=== PATIENT | male | born 1965 | race Caucasian/White ===

== ENCOUNTER → 2016-09-02 | Outpatient (CLI) | payer BC ==
[2016-09-02 16:42] LABS: BASO % 1.5 %; BASO ABS # 0.06 K/uL (0-0.2); COMPLETE YES; HEMATOCRIT 39.8 % (42-52); IG% 0.2 %; LYMPH % 37.1 %; LYMPH ABS # 1.49 K/uL (1.2-3.4); MEAN CELL VOLUME 95.7 fL (80-100); MEAN CORPUSCULAR HEMOGLOBIN 33.4 pg (25-34); MEAN CORPUSCULAR HGB CONC 34.9 g/dl (32-36); MEAN PLATELET VOLUME 9.7 fL (7.4-10.4); NEUT % 52.2 %; PLATELET COUNT 171 K/uL (130-400); RED BLOOD COUNT 4.16 M/uL (4.7-6.1); WHITE BLOOD COUNT 4.02 K/uL (4.8-10.8)
[2016-09-02 16:53] LABS: ALT/SGPT 28 U/L (12-78); AST/SGOT 21 U/L (15-37); BLOOD UREA NITROGEN 20 mg/dl (7-18); CALCIUM 8.6 mg/dl (8.5-10.1); CARBON DIOXIDE 31 mmol/L (21-32); CHLORIDE 106 mmol/L (98-107); CREATININE 0.89 mg/dl (0.60-1.40); GLUCOSE 84 mg/dl (70-99); SODIUM 142 mmol/L (136-145)
[2016-09-02 16:58] LABS: ALB/GLOB RATIO 1.3 (0.9-2); ALKALINE PHOSPHATASE 54 U/L (45-117); CHOLESTEROL 123 mg/dl (0-200); CHOLESTEROL/HDL RATIO 1.8; HDL CHOLESTEROL 69 mg/dl; LDL CHOLESTEROL CALCULATED 44 mg/dl; PROSTATE SPECIFIC ANTIGEN 0.855 ng/ml (0.000-4.000); TRIGLYCERIDES 52 mg/dl (0-150); VERY LOW DENSITY LIPOPROT CALC 10 mg/dl
== END | disposition home or self-care (01) ==
LOC: C.LAB1850 15:20
PROVIDERS: ATTEND Internal Medicine
DX: D72.819 Decreased white blood cell count, unspecified (principal); Z12.5 Encounter for screening for malignant neoplasm of prostate; Z13.220 Encounter for screening for lipoid disorders; Z11.59 Encounter for screening for other viral diseases

== ENCOUNTER 2017-05-19 00:17 | Inpatient (IN) | payer BC ==
[~2017-05-19] VITALS: Ht 180.3 cm; Wt 64.1 kg
[2017-05-19] MEDS ORDERED: ONDANSETRON INJ 2 MG/ML 2 ML VIAL ONE (00:43)
[2017-05-19] MEDS ORDERED: FENTANYL CITRATE INJ 50 MCG/1 ML 2 ML VIAL ONE (00:43)
[2017-05-19 00:50] LABS: ISTAT CREATININE 0.9 mg/dl (0.6-1.3); ISTAT HEMOGLOBIN 14.6 g/dl (14.0-18.0); ISTAT IONIZED CALCIUM 1.2 mmol/l (1.12-1.32)
--- NOTE | 2017-05-19 00:54 | EMERGENCY ROOM VISIT NOTE ---
History Report prepared by Doc: Aaron Sherman Under the Supervision of: Dr. Prema Selby D.O. First contact with patient: 00:34 Chief Complaint: ABDOMINAL PAIN Stated Complaint: ABD PAIN History of Present Illness The patient is a 51 year old male who presents to the Emergency Room with complaints of severe, constant, abdominal pain beginning 4.5 hours ago. He currently rates his discomfort a 7/10 in severity. The patient states his pain is less rhythmic than while he was at home. He notes he became dizzy, lightheaded, and nauseous. He reports he vomited multiple times and he cannot stop shaking. The patient states he has been fine all day. He reports he has a history of a laparotomy 3 years ago for a small bowel obstruction, an appendectomy, and a neurogenic bladder. The patient notes he uses a straight catheter three times a day, and he last cathed himself 4.5 hours ago. Source of History: patient Onset: 4.5 hours ago Position: abdomen Symptom Intensity: 7/10 Timing: constant Associated Symptoms: + nausea, + vomiting Note: Associated symptoms: lightheaded, dizzy Review of Systems See HPI for pertinent positives & negatives. A total of 10 systems reviewed and were otherwise negative. Past Medical & Surgical Medical Problems: (1) Bronchitis (2) Neurogenic bladder disorder (3) SBO (small bowel obstruction) Surgical Problems: (1) Hx of appendectomy Family History Diabetes mellitus GRANDFATHER FH: cancer GRANDMOTHER Social History Smoking Status: Never Smoker Alcohol Use: occasionally Marital Status: Housing Status: lives with significant other Occupation Status: employed Current/Historical Medications No Active Prescriptions or Reported Meds Allergies Coded Allergies: Penicillins (Verified Allergy, Unknown, unknown, 05/19/17) Physical Exam Vital Signs Date Time Temp Pulse Resp B/P (MAP) Pulse Ox O2 Delivery O2 Flow Rate FiO2 05/19/17 01:38 51 15 104/68 99 Room Air 05/19/17 00:38 60 05/19/17 00:19 61 24 130/81 100 Room Air Physical Exam HEENT: Head - normocephalic and atraumatic Pupils are equal, round, and reactive to light. Extraocular eye muscles are intact, and sclera are anicteric. Nose - moist nasal mucosa without discharge. Mouth - moist buccal mucosa. Oropharynx is nonerythematous and there is no tonsillar exudate or edema noted. Neck: Supple; no JVD, nuchal rigidity, cervical lymphadenopathy, or auscultated bruits. Heart: Bradycardic rate and regular rhythm. There is a normal S1 and S2 with no murmurs, clicks, or gallops appreciated. Lungs: Clear to auscultation bilaterally with no wheezes, rales, or rhonchi. Abdomen: Soft, diffusely tender, distended, with hypoactive bowel sounds. There are no palpable pulsatile masses or hepatosplenomegaly. There is no guarding, rigidity, or rebound noted. Extremities: No evidence of cyanosis, clubbing, or edema. There are easily palpable peripheral pulses. Skin: Pale, warm and dry with good turgor and no rashes. Medical Decision & Procedures ER Provider Diagnostic Interpretation: Radiology results as stated below per my review and the radiologist's interpretation: Chest x-ray: no free air under the diaphragm, otherwise normal Obstruction series x-rays: no obvious obstruction, moderate amount of colonic stool, small air fluid level in LUQ. CT ABDOMEN & PELVIS WITH CONTRAST: Comparison: CT dated 03/08/2014. Distended fluid-filled small bowel loops suggestive of small bowel obstruction with possible transition point in the right posterior pelvis (image [id number]). Differential considerations also include enteritis or ileus. Possible trace free fluid. No evidence of free air. Large amount of stool in the right colon. Radiologist: Essence Major MD Study ready at 0236 and initial results transmitted at 0331. Laboratory Results 05/19/17 00:34 Red Blood Count 4.53, Mean Corpuscular Volume 97.1, Mean Corpuscular Hemoglobin 33.1, Mean Corpuscular Hemoglobin Concent 34.1, Mean Platelet Volume 9.5, Neutrophils (%) (Auto) 68.8, Lymphocytes (%) (Auto) 22.9, Monocytes (%) (Auto) 4.9, Eosinophils (%) (Auto) 2.5, Basophils (%) (Auto) 0.7, Neutrophils # (Auto) 5.74, Lymphocytes # (Auto) 1.91, Monocytes # (Auto) 0.41, Eosinophils # (Auto) 0.21, Basophils # (Auto) 0.06 05/19/17 00:34 Test 05/19/17 00:34 05/19/17 00:39 05/19/17 00:43 05/19/17 02:15 White Blood Count 8.35 K/uL (4.8-10.8) Red Blood Count 4.53 M/uL (4.7-6.1) Hemoglobin 15.0 g/dL (14.0-18.0) Hematocrit 44.0 % (42-52) Mean Corpuscular Volume 97.1 fL (80-100) Mean Corpuscular Hemoglobin 33.1 pg (25-34) Mean Corpuscular Hemoglobin Concent 34.1 g/dl (32-36) Platelet Count 187 K/uL (130-400) Mean Platelet Volume 9.5 fL (7.4-10.4) Neutrophils (%) (Auto) 68.8 % Lymphocytes (%) (Auto) 22.9 % Monocytes (%) (Auto) 4.9 % Eosinophils (%) (Auto) 2.5 % Basophils (%) (Auto) 0.7 % Neutrophils # (Auto) 5.74 K/uL (1.4-6.5) Lymphocytes # (Auto) 1.91 K/uL (1.2-3.4) Monocytes # (Auto) 0.41 K/uL (0.11-0.59) Eosinophils # (Auto) 0.21 K/uL (0-0.5) Basophils # (Auto) 0.06 K/uL (0-0.2) RDW Standard Deviation 44.3 fL (36.4-46.3) RDW Coefficient of Variation 12.6 % (11.5-14.5) Immature Granulocyte % (Auto) 0.2 % Immature Granulocyte # (Auto) 0.02 K/uL (0.00-0.02) Est Creatinine Clear Calc Drug Dose 85.2 ml/min Estimated GFR () 110.4 Estimated GFR (Non- 95.3 BUN/Creatinine Ratio 17.7 (10-20) Calcium Level 8.7 mg/dl (8.5-10.1) Total Bilirubin 0.7 mg/dl (0.2-1) Direct Bilirubin 0.2 mg/dl (0-0.2) Aspartate Amino Transf (AST/SGOT) 18 U/L (15-37) Alanine Aminotransferase (ALT/SGPT) 27 U/L (12-78) Alkaline Phosphatase 53 U/L (45-117) Total Protein 7.4 gm/dl (6.4-8.2) Albumin 4.0 gm/dl (3.4-5.0) Lipase 137 U/L (73-393) Bedside Hemoglobin 14.6 g/dl (14.0-18.0) Bedside Hematocrit 43 % (42-52) Bedside Sodium 142 mEq/L (135-144) Bedside Potassium 3.5 mEq/L (3.3-5.0) Bedside Chloride 100 mEq/L (101-112) Bedside Total CO2 29 mEq/l (24-31) Anion Gap 17.0 mmol/L (16-25) Bedside Blood Urea Nitrogen 17 mg/dl (7-18) Bedside Creatinine 0.9 mg/dl (0.6-1.3) Bedside Glucose (other) 133 mg/dl (70-99) Bedside Ionized Calcium (Carlos) 1.20 mmol/l (1.12-1.32) Bedside Lactic Acid Venous 1.27 mmol/L (0.90-1.70) Urine Color YELLOW Urine Appearance CLEAR (CLEAR) Urine pH 6.5 (4.5-7.5) Urine Specific [place] 1.021 (1.000-1.030) Urine Protein NEG (NEG) Urine Glucose (UA) NEG (NEG) Urine Ketones TRACE (NEG) Urine Occult Blood NEG (NEG) Urine Nitrite POS (NEG) Urine Bilirubin NEG (NEG) Urine Urobilinogen NEG (NEG) Urine Leukocyte Esterase TRACE (NEG) Urine WBC (Auto) >30 /hpf (0-5) Urine RBC (Auto) 0-4 /hpf (0-4) Urine Hyaline Casts (Auto) 1-5 /lpf (0-5) Urine Epithelial Cells (Auto) 0-5 /lpf (0-5) Urine Bacteria (Auto) NEG (NEG) Urine Mucus PRESENT (NONE PRSENT) Laboratory results per my review. Medications Administered Medications (Trade) Dose Ordered Sig/Ana Route Start Time Stop Time Status Last Admin Dose Admin Fentanyl Citrate (Fentanyl Inj) 100 mcg STK-MED ONCE .ROUTE 05/19/17 00:43 05/19/17 00:44 DC 05/19/17 00:52 50 MCG Ondansetron HCl (Zofran Inj) 4 mg STK-MED ONCE .ROUTE 05/19/17 00:43 05/19/17 00:44 DC 05/19/17 00:53 4 MG Hydromorphone HCl (Dilaudid Inj) 0.5 mg NOW STAT IV 05/19/17 01:26 05/19/17 01:28 DC 05/19/17 01:34 0.5 MG Sodium Chloride 500 ml @ 999 mls/hr Q31M STAT IV 05/19/17 01:33 05/19/17 02:03 DC 05/19/17 01:35 999 MLS/HR Sodium Chloride 1,000 ml @ 200 mls/hr Q5H STAT IV 05/19/17 04:04 05/19/17 05:17 DC 05/19/17 04:06 200 MLS/HR Procedure 0043: Ordered Ondansetron HCl 4mg IV, Fentanyl Citrate 100 mcg IV 0126: Ordered Hydromorphone HCl 0.5mg IV 0133: Ordered Sodium Chloride 500 ml @ 999 mls/hr IV. 0404: Ordered Sodium Chloride 1000 ml @ 200 mls/hr IV. ECG Indication: abdominal pain Rate (beats per minute): 49 Rhythm: sinus bradycardia Findings: no acute ischemic change, no ectopy ED Course 0037: The patient was evaluated in room A01. A complete history and physical examination were performed. Nursing notes and previous electronic medical records were reviewed. IV lock was established and labs were drawn as above. 0040: The patient was moved to A12B. 0043: Ordered Ondansetron HCl 4mg IV, Fentanyl Citrate 50 mcg IV 0125: I reevaluated the patient and updated him of his current exam findings. He is still in pain. His objected to the rest of the x-rays because he had another emesis and his pain increased. 0126: Ordered Hydromorphone HCl 0.5mg IV. The patient will go back to radiology for the rest of his x-rays 0133: Ordered Sodium Chloride 500 ml @ 999 mls/hr IV. 0208: After the remaining x-rays were obtained, I reviewed the patient's x- rays. He is going for CT. 0209: I reevaluated the patient and discussed his x-ray results with him and his . The patient agreed to a CT scan. 0345: At this time, the patient is symptom-free. I discussed the patient's case with Dr. Marin [facility] Hospitalist. The patient will be evaluated for further management and care. 0347: Upon reevaluation, I discussed findings and results with the patient and his . He is very comfortable and is completely pain free. I performed another PE, and the patient's abdomen was soft, nondistended, nontender, and he had good bowel sounds. He verbalized agreement of the treatment plan. 0404: Ordered Sodium Chloride 1000 ml @ 200 mls/hr IV. Medical Decision The patient is a 51 year old male who presents to the ED with abdominal pain. Differential diagnosis includes small bowel obstruction, perforated viscus, gastritis, colitis, diverticulitis, sepsis, cystitis iSTAT showed: glucose of 133, stable H&H, normal renal function Lab results showed: lactic acid of 1.27, LFTs and lipase are normal This is a 51-year-old male patient who presents to the emergency department with a sudden onset of severe arrhythmic pain in the abdomen. The patient had intussusception at 6 months of age with surgery and went on to have a significant bowel obstruction 3 years ago which resulted in surgery and a one- month hospitalization. The patient has done well since that time but developed severe pain tonight. CT scan was concerning for a small bowel obstruction. However, the patient's physical exam seemed to dramatically improve after some time here in the emergency department. I've suggested that the patient remain nothing by mouth and come into the hospital for further inpatient care and observation. Consults Time Called: [phone] Consulting Physician: Dr. Marin [facility] Hospitalist Returned Call: [phone] I discussed the patient's case with Dr. Marin [facility] Hospitalist. The patient will be evaluated for further management and care. Impression Primary Impression: SBO (small bowel obstruction) Scribe Attestation The scribe's documentation has been prepared under my direction and personally reviewed by me in its entirety. I confirm that the note above accurately reflects all work, treatment, procedures, and medical decision making performed by me. Departure Information Dispostion Being Evaluated By Hospitalist Prescriptions No Active Prescriptions or Reported Meds Referrals Gwyn Egan M.D. (PCP) Patient Instructions My [facility]
[2017-05-19 01:01] LABS: BASO % 0.7 %; BASO ABS # 0.06 K/uL (0-0.2); COMPLETE YES; EOS % 2.5 %; IG% 0.2 %; LYMPH % 22.9 %; LYMPH ABS # 1.91 K/uL (1.2-3.4); MEAN CELL VOLUME 97.1 fL (80-100); MEAN CORPUSCULAR HEMOGLOBIN 33.1 pg (25-34); MEAN CORPUSCULAR HGB CONC 34.1 g/dl (32-36); MEAN PLATELET VOLUME 9.5 fL (7.4-10.4); MONO % 4.9 %; NEUT % 68.8 %; PLATELET COUNT 187 K/uL (130-400); RED BLOOD COUNT 4.53 M/uL (4.7-6.1); WHITE BLOOD COUNT 8.35 K/uL (4.8-10.8)
[2017-05-19 01:10] LABS: BUN/CREATININE RATIO 17.7 (10-20); CALCIUM 8.7 mg/dl (8.5-10.1); CREATININE 0.92 mg/dl (0.60-1.40); POTASSIUM 3.7 mmol/L (3.5-5.1)
[2017-05-19] MEDS ORDERED: HYDROmorphone INJ 0.5 MG/0.5 ML SYR IV STA (01:26)
[2017-05-19] MEDS ORDERED: SODIUM CHLORIDE 0.9% 500ML 500 ML IV STA (01:33)
[2017-05-19] MEDS ORDERED: OPTIRAY 320 IV PRN (02:15)
[2017-05-19 02:47] LABS: URINE APPEARANCE CLEAR (CLEAR); URINE BILIRUBIN NEG (NEG); URINE COLOR YELLOW; URINE EPITHELIAL CELL AUTO 0-5 /lpf (0-5); URINE NITRITE POS (NEG); URINE PH 6.5 (4.5-7.5); URINE SPECIFIC GRAVITY 1.021 (1.000-1.030); UROBILINOGEN NEG (NEG)
[2017-05-19 02:52] LABS: MANUAL MICROSCOPIC REQUIRED? NO; REVIEW REQ? YES
[2017-05-19 03:05] LABS: URINE MUCUS PRESENT (NONE PRSENT)
[2017-05-19] MEDS ORDERED: SODIUM CHLORIDE 0.9% 1000ML 1,000 ML IV STA (04:04)
[2017-05-19] MEDS ORDERED: HYDROmorphone INJ 0.5 MG/0.5 ML SYR IV PRN (04:15)
[2017-05-19] MEDS ORDERED: ONDANSETRON INJ 2 MG/ML 2 ML VIAL IV PRN (04:15)
--- NOTE | 2017-05-19 04:27 | History and Physical ---
History & Physical Date & Time of Service: May 19, 2017 at 04:13 Chief Complaint: Abd Pain Primary Care Physician: Gwyn Egan M.D. History of Present Illness Source: patient 51 y/o M Hx neurogenic bladder, SBO requiring surgical intervention 02/10. Presents with acute onset abdominal pain, nausea, vomiting. He received narcotics in the ER and following a third dose had complete resolution of his symptoms. results of a CT abdomen were consistent with a SBO. 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 [employer] Smoking Status: Never Smoker Marital Status: Occupational Status: employed Multi-Drug Resistant Organisms History of MDRO: No Allergies Coded Allergies: Penicillins (Verified Allergy, Unknown, unknown, 05/19/17) Home Medications No Active Prescriptions or Reported Meds Review of Systems Constitutional: No fever, No chills, No sweats Eyes: No worsening of vision ENT: No hearing loss, No unusual epistaxis, No nasal symptoms Respiratory: No cough, No wheezing Cardiovascular: No chest pain, No orthopnea, No PND Abdomen: + pain, + nausea, + vomiting Musculoskeletal: No joint pain Genitourinary - Male: No hematuria, No dysuria Neurologic: No memory loss, No paralysis, No weakness Psychiatric: No depression symptoms Endocrine: No fatigue Hematologic / Lymphatic: No abnormal bleeding/bruising Integumentary: No rash Allergic / Immunologic: No environmental allergies Physical Exam Vital Signs Date Time Temp Pulse Resp B/P (MAP) Pulse Ox O2 Delivery O2 Flow Rate FiO2 05/19/17 01:38 51 15 104/68 99 Room Air 05/19/17 00:38 60 05/19/17 00:19 61 24 130/81 100 Room Air General Appearance: WD/WN, no apparent distress Head: normocephalic Eyes: normal inspection ENT: normal ENT inspection, pharynx normal Neck: supple, no JVD Respiratory/Chest: chest non-tender, lungs clear, normal breath sounds Cardiovascular: regular rate, rhythm, no edema, no gallop Abdomen/GI: + pertinent finding (Minimal bowel sounds - no tenderness to palpation - no distention) Back: normal inspection, no CVA tenderness Extremities/Musculoskelatal: normal inspection, no calf tenderness, normal capillary refill 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, no motor/sensory deficits, alert Skin: normal color, warm/dry Diagnostics Laboratory Results Results Past 24 Hours Test 05/19/17 00:34 05/19/17 00:39 05/19/17 00:43 05/19/17 02:15 Range/Units White Blood Count 8.35 4.8-10.8 K/uL Red Blood Count 4.53 4.7-6.1 M/uL Hemoglobin 15.0 14.0-18.0 g/dL Hematocrit 44.0 42-52 % Mean Corpuscular Volume 97.1 80-100 fL Mean Corpuscular Hemoglobin 33.1 25-34 pg Mean Corpuscular Hemoglobin Concent 34.1 32-36 g/dl Platelet Count 187 130-400 K/uL Mean Platelet Volume 9.5 7.4-10.4 fL Neutrophils (%) (Auto) 68.8 % Lymphocytes (%) (Auto) 22.9 % Monocytes (%) (Auto) 4.9 % Eosinophils (%) (Auto) 2.5 % Basophils (%) (Auto) 0.7 % Neutrophils # (Auto) 5.74 1.4-6.5 K/uL Lymphocytes # (Auto) 1.91 1.2-3.4 K/uL Monocytes # (Auto) 0.41 0.11-0.59 K/uL Eosinophils # (Auto) 0.21 0-0.5 K/uL Basophils # (Auto) 0.06 0-0.2 K/uL RDW Standard Deviation 44.3 36.4-46.3 fL RDW Coefficient of Variation 12.6 11.5-14.5 % Immature Granulocyte % (Auto) 0.2 % Immature Granulocyte # (Auto) 0.02 0.00-0.02 K/uL Sodium Level 138 136-145 mmol/L Potassium Level 3.7 3.5-5.1 mmol/L Chloride Level 104 98-107 mmol/L Carbon Dioxide Level 30 21-32 mmol/L Anion Gap 4.0 17.0 16-25 mmol/L Blood Urea Nitrogen 16 7-18 mg/dl Creatinine 0.92 0.60-1.40 mg/dl Est Creatinine Clear Calc Drug Dose 85.2 ml/min Estimated GFR () 110.4 Estimated GFR (Non- 95.3 BUN/Creatinine Ratio 17.7 10-20 Random Glucose 131 70-99 mg/dl Calcium Level 8.7 8.5-10.1 mg/dl Total Bilirubin 0.7 0.2-1 mg/dl Direct Bilirubin 0.2 0-0.2 mg/dl Aspartate Amino Transf (AST/SGOT) 18 15-37 U/L Alanine Aminotransferase (ALT/SGPT) 27 12-78 U/L Alkaline Phosphatase 53 45-117 U/L Total Protein 7.4 6.4-8.2 gm/dl Albumin 4.0 3.4-5.0 gm/dl Lipase 137 73-393 U/L Bedside Hemoglobin 14.6 14.0-18.0 g/dl Bedside Hematocrit 43 42-52 % Bedside Sodium 142 135-144 mEq/L Bedside Potassium 3.5 3.3-5.0 mEq/L Bedside Chloride 100 101-112 mEq/L Bedside Total CO2 29 24-31 mEq/l Bedside Blood Urea Nitrogen 17 7-18 mg/dl Bedside Creatinine 0.9 0.6-1.3 mg/dl Bedside Glucose (other) 133 70-99 mg/dl Bedside Ionized Calcium (Carlos) 1.20 1.12-1.32 mmol/l Bedside Lactic Acid Venous 1.27 0.90-1.70 mmol/L Urine Color YELLOW Urine Appearance CLEAR CLEAR Urine pH 6.5 4.5-7.5 Urine Specific [place] 1.021 1.000-1.030 Urine Protein NEG NEG Urine Glucose (UA) NEG NEG Urine Ketones TRACE NEG Urine Occult Blood NEG NEG Urine Nitrite POS NEG Urine Bilirubin NEG NEG Urine Urobilinogen NEG NEG Urine Leukocyte Esterase TRACE NEG Urine WBC (Auto) >30 0-5 /hpf Urine RBC (Auto) 0-4 0-4 /hpf Urine Hyaline Casts (Auto) 1-5 0-5 /lpf Urine Epithelial Cells (Auto) 0-5 0-5 /lpf Urine Bacteria (Auto) NEG NEG Urine Mucus PRESENT NONE PRSENT Microbiology Results 05/19/17 Urine Culture, Received Pending Diagnostic Radiology CT abdomen: Consistent with SBO and transition point near R posterior pelvis Impression Assessment and Plan 51 y/o M Hx neurogenic bladder, SBO requiring surgical intervention 02/10. Presents with acute onset abdominal pain, nausea, vomiting. He received narcotics in the ER and following a third dose had complete resolution of his symptoms. results of a CT abdomen were consistent with a SBO. 1) SBO - NPO, pain control, antiemetics, IVF - as he is currently asymptomatic an NGT is deferred - will be placed with recurrence of symptoms. Due to his history, surgery is consulted. 2) Neurogenic bladder - can self cath as needed. Full code - Heparin prophylaxis Total time for this admit including review of labs, meds, imaging - discussion with pt and ER attending - 33 min Level of Care Med/Surg Resuscitation Status FULL RESUSCITATION VTE Prophylaxis VTE Risk Assessment Done? Y/N: Yes Risk Level: Very Low Given or contraindicated: Unfractionated heparin SQ
[2017-05-19 04:40] VITALS: BP 101/53; PULSE 54; TEMP 36.9; O2SAT 100; Ht 180.3 cm; Wt 64.1 kg
[2017-05-19] MEDS: HEPARIN SOD 5000 UNIT/0.5 ML CARP SQ SCH ×3 (06:20→21:29)
[2017-05-19] MEDS: D5NSS + 20MEQ KCL 1,000 ML IV SCH ×2 (06:28→17:45)
--- NOTE | 2017-05-19 06:30 | DIAGNOSTIC IMAGING REPORT ---
ABDOMEN 2 VIEWS CLINICAL HISTORY: Emesis. COMPARISON STUDY: Chest radiograph with abdominal series April 09, 2015. FINDINGS: No free air is evident on the upright projection. The bowel gas pattern is normal. A few small bowel air-fluid levels are noted on the upright projection. IMPRESSION: No free air or radiographic evidence of a bowel obstruction. Electronically signed by: Mario Hurt M.D. 05/19/2017 6:28 AM Dictated Date/Time: 05/19/2017 6:27 AM
--- NOTE | 2017-05-19 06:43 | DIAGNOSTIC IMAGING REPORT ---
CT ABD/PELVIS IV CONTRAST ONLY CLINICAL HISTORY: Abdominal pain and vomiting COMPARISON STUDY: 03/08/2014 TECHNIQUE: Following the IV administration of 93 mL of Optiray-320, CT scan of the abdomen and pelvis was performed from the lung bases to the proximal femurs. Images are reviewed in the axial, sagittal, and coronal planes. IV contrast was administered without complication. A dose lowering technique was utilized adhering to the principles of ALARA. CT DOSE: 272.08 mGy.cm FINDINGS: Lower chest: The heart is normal in size and configuration, without pericardial effusion. The lung bases and pleural spaces are clear. Liver: The contrast-enhanced liver is normal in size, contour, and attenuation. There is no intrahepatic biliary ductal dilatation. The hepatic veins and portal veins are patent. Gallbladder: Unremarkable. Spleen: Normal in size and attenuation. Pancreas: Unremarkable. Adrenal glands: Unremarkable. Kidneys: There is symmetric renal cortical enhancement. The kidneys are normal in size without hydronephrosis. Bowel: There are multiple borderline dilated fluid-filled small bowel loops containing scattered air-fluid levels. There is a moderate amount of stool present within the colon. A discrete transition zone is not visualized. Evaluation of bowel is somewhat limited given the lack of orally administered contrast and the paucity of intra-abdominal fat. Peritoneum: No free air is visualized. There is equivocal trace fluid. Vasculature: The abdominal aorta is normal in course and caliber. Adenopathy: None. Pelvic viscera: There is an indwelling Rendon catheter. The bladder is decompressed. Skeletal structures: No destructive osseous lesions are seen. IMPRESSION: 1. Difficult study to interpret given the lack of orally administered contrast and the paucity of intra-abdominal fat 2. Multiple mildly dilated fluid-filled small bowel loops with scattered air-fluid levels. 3. Moderate to large amount of right colonic stool 4. A discrete small bowel transition zone is difficult to delineate. Bowel gas findings could be secondary to either an ileus, enteritis or low-grade small bowel obstruction. Clinical and imaging follow-up is recommended. Electronically signed by: Víctor Nieto M.D. 05/19/2017 6:42 AM Dictated Date/Time: 05/19/2017 6:33 AM
--- NOTE | 2017-05-19 06:50 | DIAGNOSTIC IMAGING REPORT ---
CHEST ONE VIEW PORTABLE CLINICAL HISTORY: Emesis COMPARISON STUDY: 04/09/2015 FINDINGS: The cardiac and mediastinal contours are normal. There is no evidence of focal pulmonary consolidation. There is no evidence of failure. No pleural effusions are visualized.[No free intraperitoneal air is visualized. IMPRESSION: No active disease in the chest. Electronically signed by: Víctor Nieto M.D. 05/19/2017 6:48 AM Dictated Date/Time: 05/19/2017 6:48 AM
[2017-05-19 07:47] VITALS: BP 92/51; PULSE 49; TEMP 36.9; O2SAT 99
--- NOTE | 2017-05-19 09:23 | Hospitalist Progress Note ---
Hospitalist Progress Note Date of Service May 19, 2017. Subjective Pt evaluation today including: conversation w/ patient, conversation w/ family , physical exam, chart review, lab review, review of studies, conversation w/ [employer] consultant Pain: none PO Intake: Will attempt trial of clears now The patient was seen and examined this morning. Patient reports feeling well since last night when his pain spontaneously resolved. The patient denies any nausea or vomiting since that point. In is actually feeling quite hungry. The patient was seen with general surgery, Dr. Zamorano at bedside and he is allowing the patient to advance his diet to clears at this time. Upon my entry to the room the patient was up and walking laps around the [place]uj[place]. He denies any complaints. Discussion was held regarding eating frequent small meals, and when eating foods such as meats should chew them for an extended period of time. No limitations to fluids. 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 The patient denies any alcohol use except for an occasional glass of red wine. The patient notes he had surgery when he was 6 months old for intussusception. The patient had underwent exploratory lap on 03/01 and lysis of adhesions, and was admitted for approximately 3 weeks. Additional Comments: Constitutional: No fever, sweats or chills Eyes: No diplopia, no worsening or blurred vision ENT: normal hearing, no trouble swallowing Respiratory: No cough, sputum, dyspnea at rest or on exertion Cardiovascular: No chest pain, tightness or palpitations Abdomen: No pain, nausea, vomiting, diarrhea or constipation, + passing gas Musculoskeletal: No joint pain, calf pain, swelling Neurologic: No weakness, numbness/tingling, or balance problems Psychiatric: No anxiety or depression Skin: No rash or itch Objective Vital Signs Date Time Temp Pulse Resp B/P (MAP) Pulse Ox O2 Delivery O2 Flow Rate FiO2 05/19/17 07:47 36.9 49 16 92/51 (65) 99 Room Air 05/19/17 07:30 Room Air 05/19/17 04:40 36.9 54 16 101/53 (69) 100 Room Air 05/19/17 04:40 36.9 54 16 101/53 Room Air 05/19/17 04:27 53 15 106/43 99 05/19/17 04:11 53 106/43 99 Room Air 05/19/17 01:38 51 15 104/68 99 Room Air 05/19/17 00:38 60 05/19/17 00:19 61 24 130/81 100 Room Air Physical Exam Notes: General: awake, alert, no apparent distress, physically fit Head: Normocephalic, atraumatic ENT: PERRL, EOMI, no pharyngeal exudate, mucous membranes moist Chest: Clear to auscultation, on room air, no adventitious breath sounds Cardiac: Regular rate and rhythm, no murmur, no JVD, normal peripheral pulses, good capillary refill Abdominal: + Horizontal scar status post surgery for intussusception, vertical scar down the midline which is well-healed s/p exploratory lap, NABS x 4 quadrants, soft, nontender to palpation, no rebound, guarding or tenderness Extremities: Normal inspection, no peripheral edema or erythema, calfs nontender to palpation Psych: Normal mood and affect Neuro: AAO x 3, strength intact bilaterally and related 5/5, no motor deficits, speech is clear, no peripheral sensory deficits Laboratory Results Last 24 Hours Test 05/19/17 00:34 05/19/17 00:39 05/19/17 00:43 05/19/17 02:15 White Blood Count 8.35 K/uL Red Blood Count 4.53 M/uL Hemoglobin 15.0 g/dL Hematocrit 44.0 % Mean Corpuscular Volume 97.1 fL Mean Corpuscular Hemoglobin 33.1 pg Mean Corpuscular Hemoglobin Concent 34.1 g/dl Platelet Count 187 K/uL Mean Platelet Volume 9.5 fL Neutrophils (%) (Auto) 68.8 % Lymphocytes (%) (Auto) 22.9 % Monocytes (%) (Auto) 4.9 % Eosinophils (%) (Auto) 2.5 % Basophils (%) (Auto) 0.7 % Neutrophils # (Auto) 5.74 K/uL Lymphocytes # (Auto) 1.91 K/uL Monocytes # (Auto) 0.41 K/uL Eosinophils # (Auto) 0.21 K/uL Basophils # (Auto) 0.06 K/uL RDW Standard Deviation 44.3 fL RDW Coefficient of Variation 12.6 % Immature Granulocyte % (Auto) 0.2 % Immature Granulocyte # (Auto) 0.02 K/uL Sodium Level 138 mmol/L Potassium Level 3.7 mmol/L Chloride Level 104 mmol/L Carbon Dioxide Level 30 mmol/L Anion Gap 4.0 mmol/L 17.0 mmol/L Blood Urea Nitrogen 16 mg/dl Creatinine 0.92 mg/dl Est Creatinine Clear Calc Drug Dose 85.2 ml/min Estimated GFR () 110.4 Estimated GFR (Non- 95.3 BUN/Creatinine Ratio 17.7 Random Glucose 131 mg/dl Calcium Level 8.7 mg/dl Total Bilirubin 0.7 mg/dl Direct Bilirubin 0.2 mg/dl Aspartate Amino Transf (AST/SGOT) 18 U/L Alanine Aminotransferase (ALT/SGPT) 27 U/L Alkaline Phosphatase 53 U/L Total Protein 7.4 gm/dl Albumin 4.0 gm/dl Lipase 137 U/L Bedside Hemoglobin 14.6 g/dl Bedside Hematocrit 43 % Bedside Sodium 142 mEq/L Bedside Potassium 3.5 mEq/L Bedside Chloride 100 mEq/L Bedside Total CO2 29 mEq/l Bedside Blood Urea Nitrogen 17 mg/dl Bedside Creatinine 0.9 mg/dl Bedside Glucose (other) 133 mg/dl Bedside Ionized Calcium (Carlos) 1.20 mmol/l Bedside Lactic Acid Venous 1.27 mmol/L Urine Color YELLOW Urine Appearance CLEAR Urine pH 6.5 Urine Specific [place] 1.021 Urine Protein NEG Urine Glucose (UA) NEG Urine Ketones TRACE Urine Occult Blood NEG Urine Nitrite POS Urine Bilirubin NEG Urine Urobilinogen NEG Urine Leukocyte Esterase TRACE Urine WBC (Auto) >30 /hpf Urine RBC (Auto) 0-4 /hpf Urine Hyaline Casts (Auto) 1-5 /lpf Urine Epithelial Cells (Auto) 0-5 /lpf Urine Bacteria (Auto) NEG Urine Mucus PRESENT Test 05/19/17 05:42 Prothrombin Time 11.0 SECONDS Prothromb Time International Ratio 1.0 Assessment and Plan 51 y/o M Hx neurogenic bladder, SBO requiring surgical intervention 02/10. Presents with acute onset abdominal pain, nausea, vomiting. He received narcotics in the ER and following a third dose had complete resolution of his symptoms. results of a CT abdomen were consistent with a SBO. SBO - NPO, pain control, antiemetics, IVF - as he is currently asymptomatic an NGT is deferred - Surgery consulted -advance diet to clears today and watch, no current indication for surgical intervention Neurogenic bladder - can self cath 3 times daily since age 39. DVT ppx: Ambulatory, heparin subcutaneous CODE STATUS: Full code Disposition: patient from home, lives with , likely discharge tomorrow
--- NOTE | 2017-05-19 14:03 | Discharge Instructions ---
Discharge Instructions Date of Service May 20, 2017. Admission Reason for Admission: SBO Discharge Discharge Diagnosis / Problem: Small Bowel obstruction Discharge Goals Goal(s): Decrease discomfort, Improve function, Increase independence, Improve disease control Activity Recommendations Activity Limitations: resume your previous activity Lifting Limitations: gradually increase as tolerated Exercise/Sports Limitations: gradually increase as tolerated May Resume Sexual Activity: when tolerated Shower/Bathe: no limitations Driving or Machine Use: no limitations . Instructions / Follow-Up Instructions / Follow-Up You were admitted to [facility] with Small bowel obstruction and diagnosed with the same. During your stay here you were treated with supportive care including bowel rest , intravenous fluids, and pain management. You were seen by General surgery due to recent surgical intervention with lysis of adhesions in Feb 2017. There was no need for surgical intervention. Continue to eat small meals every 3-4 hours. Drink plenty of fluids. Imaging studies which were completed include CT of the abdomen, and were abnormal showing the low grade small bowel obstruction. Medications: No changes were made to medications. Continue taking your medications as above. Follow up: Follow up with your Primary Care Provider within 1-2 weeks. Current Hospital Diet Patient's current hospital diet: Clear Liquid Diet Discharge Diet Recommended Diet: Regular Diet Procedures Procedures Performed: None Pending Studies Studies pending at discharge: no Medical Emergencies . Who to Call and When: Medical Emergencies: If at any time you feel your situation is an emergency, please call 911 immediately. . Non-Emergent Contact Non-Emergency issues call your: Primary Care Provider Call Non-Emergent contact if: temperature is above 100.5, your pain is not controlled, your pain is worsening, your pain is unusual for you, your pain is concerning you, you have any medication questions other concerns with your health. Call 911 or go directly to the Emergency Department if you experience any of the following: Chest pain, chest tightness, shortness of breath, abdominal pain , lightheadedness, dizziness, gastrointestinal bleeding, or have any other concerns regarding your health. . Past History Medical & Surgical History: (1) SBO (small bowel obstruction) (2) Neurogenic bladder disorder . "Provider Documentation" section prepared by Ekaterina Lopez. . VTE Core Measure Inpt VTE Proph given/why not?: Unfractionated heparin SQ
[2017-05-19 15:22] VITALS: BP 103/65; PULSE 49; TEMP 36.7; O2SAT 100
--- NOTE | 2017-05-19 15:59 | Surgery Consultation ---
Consultation Date of Consultation: May 19, 2017. Attending Physician: Martir Alarcon MD, PhD Reason for Consultation: Partial SBO History of Present Illness Jeffery is a pleasant 51 year-old male who presented to emergency department last night with complaint of sudden abdominal pain, nausea, and vomiting. Had narcotic pain medication in the emergency department and his pain resolved. Jeffery states he has a history of partial small bowel obstruction which required exploratory laparotomy and lysis of adhesions 3 years ago. Had adhesions secondary to appendectomy when he was 6 months old. No other previous abdominal surgeries. In the ER he had a ct scan of abdomen and pelvis which showed signs of partial small bowel obstruction was admitted under medicine service for observation. Kept NPO, IV fluids, and pain management. Did not require placement of NGT. Since admission he is feeling well, ambulating, pain has resolved, and has passed flatus. NO nausea or vomiting. Past Medical/Surgical History Past Medical History: 1. Neurogenic bladder 2. Abdominal adhesions 3. PSBO Past Surgical History: 1. Appendectomy 2. Exploratory laparotomy lysis of adhesions Family History Diabetes mellitus GRANDFATHER FH: cancer GRANDMOTHER Social History Smoking Status: Never Smoker Marital Status: Housing Status: lives with significant other Occupation Status: employed Allergies Coded Allergies: Penicillins (Verified Allergy, Unknown, unknown, 05/19/17) Home Medications No Active Prescriptions or Reported Meds Current Inpatient Medications Current Inpatient Medications Medications (Trade) Dose Ordered Sig/Ana Route Start Time Stop Time Status Last Admin Dose Admin Ioversol (Optiray 320) 100 ml UD PRN IV 05/19/17 02:15 05/23/17 02:14 Heparin Sodium (Porcine) (Heparin Sq 5000 Unit/0.5ml) 5,000 unit Q8 SQ 05/19/17 06:30 06/18/17 06:29 Ondansetron HCl (Zofran Inj) 4 mg Q6H PRN IV 05/19/17 04:15 06/18/17 04:14 Hydromorphone HCl (Dilaudid Inj) 0.5 mg Q3H PRN IV 05/19/17 04:15 06/02/17 04:14 Potassium Chloride/Dextrose/ Sod Cl 1,000 ml @ 100 mls/hr Q10H IV 05/19/17 05:30 05/20/17 01:29 05/19/17 06:28 100 MLS/HR Review of Systems Constitutional: No fever, No chills, No sweats Abdomen: + pain, + nausea, + vomiting Physical Exam Date Time Temp Pulse Resp B/P (MAP) Pulse Ox O2 Delivery O2 Flow Rate FiO2 05/19/17 15:22 36.7 49 18 103/65 (78) 100 Room Air 05/19/17 07:47 36.9 49 16 92/51 (65) 99 Room Air 05/19/17 07:30 Room Air 05/19/17 04:40 36.9 54 16 101/53 (69) 100 Room Air 05/19/17 04:40 36.9 54 16 101/53 Room Air 05/19/17 04:27 53 15 106/43 99 05/19/17 04:11 53 106/43 99 Room Air 05/19/17 01:38 51 15 104/68 99 Room Air 05/19/17 00:38 60 05/19/17 00:19 61 24 130/81 100 Room Air General Appearance: WD/WN, no apparent distress Head: normocephalic, atraumatic Eyes: sclerae normal ENT: hearing grossly normal Neck: trachea midline Respiratory/Chest: no respiratory distress, no accessory muscle use Neurologic/Psych: alert, normal mood/affect, oriented x 3 Skin: normal color, warm/dry, no rash Laboratory Results Last 24 Hours Test 05/19/17 00:34 05/19/17 00:39 05/19/17 00:43 05/19/17 02:15 White Blood Count 8.35 K/uL Red Blood Count 4.53 M/uL Hemoglobin 15.0 g/dL Hematocrit 44.0 % Mean Corpuscular Volume 97.1 fL Mean Corpuscular Hemoglobin 33.1 pg Mean Corpuscular Hemoglobin Concent 34.1 g/dl Platelet Count 187 K/uL Mean Platelet Volume 9.5 fL Neutrophils (%) (Auto) 68.8 % Lymphocytes (%) (Auto) 22.9 % Monocytes (%) (Auto) 4.9 % Eosinophils (%) (Auto) 2.5 % Basophils (%) (Auto) 0.7 % Neutrophils # (Auto) 5.74 K/uL Lymphocytes # (Auto) 1.91 K/uL Monocytes # (Auto) 0.41 K/uL Eosinophils # (Auto) 0.21 K/uL Basophils # (Auto) 0.06 K/uL RDW Standard Deviation 44.3 fL RDW Coefficient of Variation 12.6 % Immature Granulocyte % (Auto) 0.2 % Immature Granulocyte # (Auto) 0.02 K/uL Sodium Level 138 mmol/L Potassium Level 3.7 mmol/L Chloride Level 104 mmol/L Carbon Dioxide Level 30 mmol/L Anion Gap 4.0 mmol/L 17.0 mmol/L Blood Urea Nitrogen 16 mg/dl Creatinine 0.92 mg/dl Est Creatinine Clear Calc Drug Dose 85.2 ml/min Estimated GFR () 110.4 Estimated GFR (Non- 95.3 BUN/Creatinine Ratio 17.7 Random Glucose 131 mg/dl Calcium Level 8.7 mg/dl Total Bilirubin 0.7 mg/dl Direct Bilirubin 0.2 mg/dl Aspartate Amino Transf (AST/SGOT) 18 U/L Alanine Aminotransferase (ALT/SGPT) 27 U/L Alkaline Phosphatase 53 U/L Total Protein 7.4 gm/dl Albumin 4.0 gm/dl Lipase 137 U/L Bedside Hemoglobin 14.6 g/dl Bedside Hematocrit 43 % Bedside Sodium 142 mEq/L Bedside Potassium 3.5 mEq/L Bedside Chloride 100 mEq/L Bedside Total CO2 29 mEq/l Bedside Blood Urea Nitrogen 17 mg/dl Bedside Creatinine 0.9 mg/dl Bedside Glucose (other) 133 mg/dl Bedside Ionized Calcium (Carlos) 1.20 mmol/l Bedside Lactic Acid Venous 1.27 mmol/L Urine Color YELLOW Urine Appearance CLEAR Urine pH 6.5 Urine Specific [place] 1.021 Urine Protein NEG Urine Glucose (UA) NEG Urine Ketones TRACE Urine Occult Blood NEG Urine Nitrite POS Urine Bilirubin NEG Urine Urobilinogen NEG Urine Leukocyte Esterase TRACE Urine WBC (Auto) >30 /hpf Urine RBC (Auto) 0-4 /hpf Urine Hyaline Casts (Auto) 1-5 /lpf Urine Epithelial Cells (Auto) 0-5 /lpf Urine Bacteria (Auto) NEG Urine Mucus PRESENT Test 05/19/17 05:42 Prothrombin Time 11.0 SECONDS Prothromb Time International Ratio 1.0 Assessment & Plan 51 year-old male who presented to emergency department last evening with sudden abdominal pain, nausea, and vomiting. History of partial sbo which required ex lap and lysis of adhesions 3 years ago. Presently comfortable, abdominal pain resolved, passing flatus, no leukocytosis. Plan: Would advance diet to clear liquids Encourage continued ambulation Continue conservative management when needed: IV fluids, IV pain management and IV Zofran Will continue to follow Dr. Zamorano has seen patient, agrees with above
[2017-05-20] MEDS: HEPARIN SOD 5000 UNIT/0.5 ML CARP SQ SCH ×2 (05:49→13:06)
[2017-05-20 07:08] VITALS: BP 104/61; PULSE 50; TEMP 36.6; O2SAT 97
[2017-05-20 07:52] VITALS: O2SAT 97
[2017-05-20 10:30] VITALS: BP 104/61; PULSE 50; TEMP 36.6; O2SAT 97
--- NOTE | 2017-05-20 10:30 | Hospitalist Progress Note ---
Hospitalist Progress Note Date of Service May 20, 2017. Subjective Pt evaluation today including: conversation w/ patient, conversation w/ family , physical exam, chart review, lab review, review of studies Pain: None PO Intake: Tolerating clears without difficulty Voiding: no voiding problems The patient was seen and examined this morning. Pt reports doing very well this morning, his is at bedside. He reports he's been tolerating clears without any nausea, vomiting. He has passed gas and had a small bowel movement this morning. Patient has been ambulating about the [place] without any difficulty. He denies any other complaints at this time. Additional Comments: Constitutional: No fever, sweats or chills Eyes: No diplopia, no worsening or blurred vision ENT: normal hearing, no trouble swallowing Respiratory: No cough, sputum, dyspnea at rest or on exertion Cardiovascular: No chest pain, tightness or palpitations Abdomen: No pain, nausea, vomiting, diarrhea or constipation Musculoskeletal: No joint pain, calf pain, swelling Neurologic: No weakness, numbness/tingling, or balance problems Psychiatric: No anxiety or depression Skin: No rash or itch Objective Vital Signs Date Time Temp Pulse Resp B/P (MAP) Pulse Ox O2 Delivery O2 Flow Rate FiO2 05/20/17 07:52 97 Room Air 05/20/17 07:08 36.6 50 16 104/61 (75) 97 Room Air 05/19/17 23:30 Room Air 05/19/17 16:30 Room Air 05/19/17 15:22 36.7 49 18 103/65 (78) 100 Room Air Physical Exam Notes: General: awake, alert, no apparent distress, physically fit, seen up ambulating about the [place] Head: Normocephalic, atraumatic ENT: PERRL, EOMI, no pharyngeal exudate, mucous membranes moist Chest: Clear to auscultation, on room air, no adventitious breath sounds Cardiac: Regular rate and rhythm, no murmur, no JVD, normal peripheral pulses, good capillary refill Abdominal: + Horizontal scar status post surgery for intussusception, vertical scar down the midline which is well-healed s/p exploratory lap, NABS x 4 quadrants, soft, nontender to palpation, no rebound, guarding or tenderness Extremities: Normal inspection, no peripheral edema or erythema, calfs nontender to palpation Psych: Normal mood and affect Neuro: AAO x 3, speech clear Assessment and Plan 51 y/o M Hx neurogenic bladder, SBO requiring surgical intervention 02/10. Presents with acute onset abdominal pain, nausea, vomiting. He received narcotics in the ER and following a third dose had complete resolution of his symptoms. results of a CT abdomen were consistent with a SBO. SBO - NPO, pain control, antiemetics, IVF - as he is currently asymptomatic an NGT is deferred - Surgery consulted - discussed with Sena Aguilar PA-C appreciate recommendations - no current indication for surgical intervention and will advance diet to regular diet today and watch until after lunch, if he tolerates it well patient likely to go home this afternoon Neurogenic bladder - can self cath 3 times daily since age 39. DVT ppx: Ambulatory, heparin subcutaneous CODE STATUS: Full code Disposition: patient from home, lives with , likely discharge later today
--- NOTE | 2017-05-20 13:45 | Discharge Summary ---
Discharge Summary Date of Service May 20, 2017. Discharge Summary Admission Date: May 19, 2017 at 04:09 Discharge Date: May 20, 2017 Discharge Disposition: Home Principal Diagnosis: Acute partial small bowel obstruction Problems/Secondary Diagnoses: Acute partial small bowel obstruction Hx of SBO requiring surgical decompression Neurogenic bladder Procedures: CHEST ONE VIEW PORTABLE 05/19 FINDINGS: The cardiac and mediastinal contours are normal. There is no evidence of focal pulmonary consolidation. There is no evidence of failure. No pleural effusions are visualized.[No free intraperitoneal air is visualized. IMPRESSION: No active disease in the chest. Abdomen 2 Views 05/19 FINDINGS: No free air is evident on the upright projection. The bowel gas pattern is normal. A few small bowel air-fluid levels are noted on the upright projection. IMPRESSION: No free air or radiographic evidence of a bowel obstruction. CT ABD/PELVIS IV CONTRAST ONLY 05/19 FINDINGS: Lower chest: The heart is normal in size and configuration, without pericardial effusion. The lung bases and pleural spaces are clear. Liver: The contrast-enhanced liver is normal in size, contour, and attenuation. There is no intrahepatic biliary ductal dilatation. The hepatic veins and portal veins are patent. Gallbladder: Unremarkable. Spleen: Normal in size and attenuation. Pancreas: Unremarkable. Adrenal glands: Unremarkable. Kidneys: There is symmetric renal cortical enhancement. The kidneys are normal in size without hydronephrosis. Bowel: There are multiple borderline dilated fluid-filled small bowel loops containing scattered air-fluid levels. There is a moderate amount of stool present within the colon. A discrete transition zone is not visualized. Evaluation of bowel is somewhat limited given the lack of orally administered contrast and the paucity of intra-abdominal fat. Peritoneum: No free air is visualized. There is equivocal trace fluid. Vasculature: The abdominal aorta is normal in course and caliber. Adenopathy: None. Pelvic viscera: There is an indwelling Rendon catheter. The bladder is decompressed. Skeletal structures: No destructive osseous lesions are seen. IMPRESSION: 1. Difficult study to interpret given the lack of orally administered contrast and the paucity of intra-abdominal fat 2. Multiple mildly dilated fluid-filled small bowel loops with scattered air-fluid levels. 3. Moderate to large amount of right colonic stool 4. A discrete small bowel transition zone is difficult to delineate. Bowel gas findings could be secondary to either an ileus, enteritis or low-grade small bowel obstruction. Clinical and imaging follow-up is recommended. Consultations: General Surgery Medication Reconciliation Medication Profile: No Active Prescriptions or Reported Meds Discharge Exam Subjective Pt evaluation today including: conversation w/ patient, conversation w/ family , physical exam, chart review, lab review, review of studies Pain: None PO Intake: Tolerating clears without difficulty Voiding: no voiding problems The patient was seen and examined this morning. Pt reports doing very well this morning, his is at bedside. He reports he's been tolerating clears without any nausea, vomiting. He has passed gas and had a small bowel movement this morning. Patient has been ambulating about the [place] without any difficulty. He denies any other complaints at this time. Pt trial of regular diet for lunch was tolerated without difficulty. ROS: Constitutional: No fever, sweats or chills Eyes: No diplopia, no worsening or blurred vision ENT: normal hearing, no trouble swallowing Respiratory: No cough, sputum, dyspnea at rest or on exertion Cardiovascular: No chest pain, tightness or palpitations Abdomen: No pain, nausea, vomiting, diarrhea or constipation Musculoskeletal: No joint pain, calf pain, swelling Neurologic: No weakness, numbness/tingling, or balance problems Psychiatric: No anxiety or depression Skin: No rash or itch Physical Exam: General: awake, alert, no apparent distress, physically fit, seen up ambulating about the [place] Head: Normocephalic, atraumatic ENT: PERRL, EOMI, no pharyngeal exudate, mucous membranes moist Chest: Clear to auscultation, on room air, no adventitious breath sounds Cardiac: Regular rate and rhythm, no murmur, no JVD, normal peripheral pulses, good capillary refill Abdominal: + Horizontal scar status post surgery for intussusception, vertical scar down the midline which is well-healed s/p exploratory lap, NABS x 4 quadrants, soft, nontender to palpation, no rebound, guarding or tenderness Extremities: Normal inspection, no peripheral edema or erythema, calfs nontender to palpation Psych: Normal mood and affect Neuro: AAO x 3, speech clear Hospital Course History of Present Illness Source: patient 51 y/o M Hx neurogenic bladder, SBO requiring surgical intervention 02/10. Presents with acute onset abdominal pain, nausea, vomiting. He received narcotics in the ER and following a third dose had complete resolution of his symptoms. results of a CT abdomen were consistent with a SBO. 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 Presents with acute onset abdominal pain, nausea, vomiting. He received narcotics in the ER and following a third dose had complete resolution of his symptoms. results of a CT abdomen were consistent with a SBO. Abdominal pain resolved overnight. Pt was able to tolerate a regular diet without any difficulty. Patient was passing gas and had a small bowel movement prior to discharge. SBO - NPO, pain control, antiemetics, IVF - as he is currently asymptomatic an NGT is deferred - Surgery consulted - discussed with Sena Aguilar PA-C appreciate recommendations - no current indication for surgical intervention and will advance diet to regular diet today- tolerated without difficulty. Passing gas, small bm this morning. Neurogenic bladder - can self cath 3 times daily since age 39. DVT ppx: Ambulatory, heparin subcutaneous CODE STATUS: Full code Disposition: patient from home, lives with , discharge to home today. Total Time Spent: Greater than 30 minutes This includes examination of the patient, discharge planning, medication reconciliation, and communication with other providers. Discharge Instructions Please refer to the electronic Patient Visit Report (Discharge Instructions) for additional information. Follow-Up Follow up with your Primary Care Provider within 1-2 weeks. Additional Copies To Gwyn Egan M.D.
--- NOTE | 2017-05-20 13:56 | Surgery Progress Note ---
Surgery Progress Note Date of Service May 20, 2017. Subjective + feeling well pt is doing fine, passed BM, pt denies abdominal pain, he tolerated full liquid diet. Objective Vital Signs: Date Time Temp Pulse Resp B/P (MAP) Pulse Ox O2 Delivery O2 Flow Rate FiO2 05/20/17 10:30 36.6 50 16 97 Room Air 05/20/17 07:52 97 Room Air 05/20/17 07:08 36.6 50 16 104/61 (75) 97 Room Air 05/19/17 23:30 Room Air 05/19/17 16:30 Room Air 05/19/17 15:22 36.7 49 18 103/65 (78) 100 Room Air General Appearance: WD/WN Head: normocephalic Neck: supple Respiratory/Chest: chest non-tender, lungs clear Cardiovascular: regular rate, rhythm, no edema, no gallop, no JVD Abdomen: normal bowel sounds, non tender, non distended, soft Extremities: normal range of motion, non-tender, normal inspection Assessment & Plan pt can D/C home today F/U me 2 weeks, [id number] I gave pt diet instruction, pt understood, I answered all questions,
== END 2017-05-20 14:47 | disposition home or self-care (01) | DRG 390 ==
LOC: C.EDB 00:18 → C.MSN 04:09 → EDBEDREQ 04:12 → ENRESERV 04:17
PROVIDERS: ADMIT Internal Medicine; ATTEND Hospitalist
DX: K56.600 Partial intestinal obstruction, unspecified as to cause (principal); N31.9 Neuromuscular dysfunction of bladder, unspecified; Z88.0 Allergy status to penicillin

== ENCOUNTER 2019-01-21 21:22 | Inpatient (IN) ==
[2019-01-21] MEDS ORDERED: ACETAMINOPHEN 1,000 MG/100 ML VIAL IV STA (21:37)
[2019-01-21] MEDS ORDERED: KETOROLAC TROMETHAMINE 15 MG/ML VIAL IV STA (21:37)
[2019-01-21] MEDS ORDERED: DiphenhydrAMINE HCL 50 MG/ML VIAL IV STA (21:37)
[2019-01-21] MEDS ORDERED: ONDANSETRON INJ 2 MG/ML 2 ML VIAL IV STA (21:37)
[2019-01-21] MEDS ORDERED: CEFEPIME 2,000 MG/20 ML VIAL IV STA (21:39)
[2019-01-21] MEDS ORDERED: SODIUM CHLORIDE 0.9% 1000ML 1,000 ML IV SCH (21:45)
[2019-01-21 22:08] LABS: Basophils # (auto) 0.06 K/uL (0-0.2); Basophils % (auto) 1.4 %; Eosinophils # (auto) 0.15 K/uL (0-0.5); Eosinophils % (auto) 3.5 %; Hematocrit (blood only) 38.4 % (42-52); Hemoglobin 13.2 g/dL (14.0-18.0); Lymphocytes % (auto) 35.1 %; Mean Corpuscular Hemoglobin 33.2 pg (25-34); Mean Corpuscular Hgb Conc 34.4 g/dL (32-36); Mean Corpuscular Volume 96.5 fL (80-100); Mean Platelet Volume 9.9 fL (7.4-10.4); Monocytes # (auto) 0.32 K/uL (0.11-0.59); Monocytes % (auto) 7.5 %; Neutrophils # (auto) 2.24 K/uL (1.4-6.5); Neutrophils % (auto) 52.5 %; Platelet Count 155 K/uL (130-400); RDW Coefficient of Variation 12.9 % (11.5-14.5); RDW Standard Deviation 45.4 fL (36.4-46.3); Red Blood Count 3.98 M/uL (4.7-6.1); White Blood Count 4.27 K/uL (4.8-10.8)
[2019-01-21 22:18] LABS: Prothrombin Time 10.3 Seconds (9.0-12.0)
--- NOTE | 2019-01-21 22:30 | XRay Report ---
XR chest 1V portable CLINICAL HISTORY: Epigastric pain. COMPARISON STUDY: Chest radiograph May 19, 2017. FINDINGS: Lung volumes are normal. Lungs are clear. There is no pneumothorax or pleural effusion. Car diac size is normal. Mediastinal contours are normal. There is no evidence for pulmonary edema. IMPRESSION: No acute cardiopulmonary findings. Electronically signed by: Mario Hurt M.D. 01/21/2019 10:29 PM
[2019-01-21 22:31] LABS: Alanine Aminotransferase 37 U/L (12-78); Albumin Level 3.8 gm/dl (3.4-5.0); Aspartate Aminotransferase 46 U/L (15-37); BUN Creatinine Ratio 21.4 (10-20); Blood Urea Nitrogen 19 mg/dl (7-18); Calcium 8.8 mg/dl (8.5-10.1); Carbon Dioxide 30 mmol/L (21-32); Chloride 105 mmol/L (98-107); Est GFR (African American) 112.3; Est GFR (Non-African American) 96.9; Glucose 107 mg/dl (70-99); Lipase 135 U/L (73-393); Magnesium 2.1 mg/dl (1.8-2.4); Potassium 3.7 mmol/L (3.5-5.1); Sodium 142 mmol/L (136-145)
[2019-01-21 22:36] LABS: Albumin Globulin Ratio 1.3 (0.9-2); Alkaline Phosphatase 50 U/L (45-117); Bilirubin,Total 0.8 mg/dl (0.2-1); Creatine Kinase 653 U/L (39-308); Total Protein 6.8 gm/dl (6.4-8.2); Troponin I 0.034 ng/ml (0-0.045)
[2019-01-21] MEDS ORDERED: IOVERSOL 100ml IV PRN (22:57)
--- NOTE | 2019-01-21 23:23 | CT Scan Report ---
CT OF THE ABDOMEN AND PELVIS WITH CONTRAST CLINICAL HISTORY: Evaluate for obstruction or perforation. COMPARISON STUDY: CT of the abdomen and pelvis May 19, 2017. TECHNIQUE: Following IV administration of Optiray-320, axial images of the abdomen and pelvis were ob tained from the lung bases to the proximal femurs. Images were reviewed in the axial, sagittal, and c oronal planes. IV contrast was administered without complication. Automated exposure control was uti lized for the study. A dose lowering technique was utilized adhering to the principles of ALARA. CT DOSE: 266.06 mGy.cm FINDINGS: Lung bases are unremarkable. No pneumatosis, free air or portal venous gas is present. Eval uation of the abdomen and pelvis is difficult given a paucity of intra-abdominal fat. Small amount of ascites within the pelvis is noted. Periportal edema within the liver is noted. The spleen, adrenal glands, kidneys and pancreas are unremarkable. Is no peripancreatic infiltration. There are multiple loops of mildly dilated fluid-filled small bowel. Possible transition point within the lower abdomen on image 274 of 436 is noted. Suspected decompressed small bowel loops are present. Bladder is modera tely distended. Moderate amount of stool within the right colon is noted. No suspicious osseous lesio ns are noted. IMPRESSION: 1. Multiple loops of mildly dilated fluid-filled small bowel with possible transition point within th e lower abdomen. The findings favor a small bowel obstruction. An enteritis could appear similar alth ough is considered less likely. 2. Technically difficult study to interpret given paucity of intra-abdominal fat. 3. Trace ascites. 4. Moderate distention of the bladder. Electronically signed by: Mario Hurt M.D. 01/21/2019 11:20 PM
--- NOTE | 2019-01-21 23:25 | Emergency Department Note ---
Entered by Pauline Alarcon acting as a scribe for History of Present Illness General Chief complaint: Abdominal Pain Stated complaint: FEVER, SHAKES, ABDOMINAL PAIN Time Seen by Provider: 01/21/19 21:30 Source: patient Mode of arrival: ambulatory Limitations: no limitations History of Present Illness Provider complaint: Abdominal pain Onset (ago): hour(s) (around 1800 today) Location: abdomen Radiation: non-radiation Pain Consistency: + other (worsening) Maximum Pain Intensity: 6 Current Pain Intensity: 5 Quality: + other (pain, cramping) Associated symptoms: + nausea/vomiting and + other (Additional symptoms: dizziness, shakiness, slurred speech, abnormal coloring, soreness. Denies: bloating, diarrhea, urinary symptoms); no chest pain and no shortness of breath Treatments prior to arrival: none The patient is a 53 year old male with a history of a bowel obstruction who presents to the Emergency Room with complaints of worsening abdominal pain starting around 1800 today. The patient reports that his pain initially started as mild cramps than suddenly worsened around 1944. At this time, he states that he felt dizzy and shaky and vomited. He states that he came to the ED right away because he had a bowel obstruction in 2013. He notes that his current symptoms do not feel quite like his prior obstruction because his cramps are not as pulsatile. He rates his pain a 5/10 and mentions that he last passed gas at 1945. Per , the patient's speech is also slurred and his coloring is not normal. The patient denies any bloating, chest pain, shortness of breath, diarrhea, and urinary symptoms. He reports that he uses a catheter secondary to a neurogenic bladder. The patient explains that he was in a trail race yester day, during which he fell over logs and rocks a couple of times. He states that he developed a bruise on his right side and felt sore but did not experience anything out of the ordinary after the race otherwise. He notes that he has had no recent sick contact and ate the same food for dinner as his , who is asymptomatic. The patient further denies a history of diverticulitis. He indicates that his blood pressure and white blood cell count are normally low. Home Medications Home Medications Medication Instructions Recorded Confirmed Type No Known Home Medications 01/21/19 01/21/19 History Allergies Allergy/AdvReac Type Severity Reaction Status Date / Time Penicillins Allergy Unknown Unknown Verified 01/21/19 22:23 Past Med/Surg History Medical History Bowel obstruction (Resolved) Hyperlipidemia (Acute) Nonvenomous insect bite of multiple sites (Acute) Neurogenic bladder disorder (Chronic) Surgical History Hx of appendectomy (Resolved) Social History Preferred Language: Sudanese Visual Impairment: No Limitations Hearing Ability: Normal marital status: Current Living Situation: Spouse current occupational status: employed 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 Feels Safe at Home: Yes Smoking Status: Never smoker Second Hand Exposure: No ; Hx Alcohol Use: Yes Alcohol type: wine Alcohol Intake Frequency: Daily Alcohol Intake Frequency Comment: 4-5oz Hx Substance Use: No Dental Care, Regularly: Yes Physical Activity Frequency: Daily Review of Systems See HPI for pertinent positives & negatives. and A total of 10 systems reviewed and were otherwise negative Physical Exam Vital Signs Vital Signs - 24 hr 01/21/19 21:25 01/21/19 23:01 01/21/19 23:30 Temperature 36.4 C L Temperature Source Oral Sepsis Recent Fever Within 48 Hours No Sepsis New/Unexplained Change in Mental Status No Sepsis Action Taken by Nursing No Action Required Pulse Rate 75 58 L 51 L Pulse Rate from SpO2 Sensor 58 L 51 L Respiratory Rate 18 16 15 Blood Pressure 99/62 L 127/70 118/69 Blood Pressure Mean 74 89 85 Pulse Oximetry 99 99 100 Oxygen Delivery Method Room Air Room Air Room Air 01/21/19 23:56 Temperature Temperature Source Sepsis Recent Fever Within 48 Hours Sepsis New/Unexplained Change in Mental Status Sepsis Action Taken by Nursing Pulse Rate Pulse Rate from SpO2 Sensor Respiratory Rate Blood Pressure Blood Pressure Mean Pulse Oximetry 99 Oxygen Delivery Method Room Air GENERAL: Patient is in no acute distress. HEENT: No acute trauma, normocephalic atraumatic, mucous membranes dry, no nasal congestion, no scleral icterus. NECK: No stridor, no adenopathy, no meningismus, trachea is midline. LUNGS: Clear to auscultation bilaterally, no wheeze, no rhonchi, breath sounds equal. HEART: Bradycardic with regular rhythm, no murmurs. CHEST: Contusion to the right lower anterior ribs, no bony tenderness. ABDOMEN: Hyperactive bowel sounds, mildly diffusely tender, no peritonitis, no distension, soft. EXTREMITIES: No cyanosis or edema, full range of motion of all the joints without pain or difficulty, no signs for acute trauma. NEUROLOGIC: Oriented x 3, no acute motor or sensory deficits, no focal weakness. SKIN: No rash, no jaundice, no diaphoresis. Course 2129: The patient was evaluated in room C8, and a complete history and physical examination were performed. 2332: I reviewed the patient's case with Dr. Rosenberg. 2340: I reviewed the patient's with Dr. Soto - Hospitalist, [facility]. Dr. Soto will evaluate the patient for further evaluation. Consultations Consultation #1: I reviewed the patient's case with Dr. Rosenberg. Time: 23:32 Consultation #2: I reviewed the patient's with Dr. Soto - Hospitalist, [facility]. Dr. Soto will evaluate the patient for further evaluation. Time: 23:40 Administered Medications Ioversol (Optiray 320 100ml) 89 ml IV ONCE PRN PRN Reason: Interaction Checking Stop: 01/25/19 22:56 Last Admin: 01/21/19 22:58 Dose: 89 ml Documented by: [id number] Discontinued Medications Diphenhydramine HCl (Benadryl) 25 mg IV NOW STA Stop: 01/21/19 21:38 Last Admin: 01/21/19 22:25 Dose: 25 mg Documented by: [id number] Acetaminophen (Ofirmev) 1,000 mg in 100 mls @ 400 mls/hr IV NOW STA Stop: 01/21/19 21:51 Last Infusion: 01/21/19 22:40 Dose: 0 mls/hr Documented by: [id number] Admin: 01/21/19 22:25 Dose: 400 mls/hr Documented by: [id number] Sodium Chloride (Nss 1000ml) 1,000 mls @ 999 mls/hr IV .Q1H1M BETTY Stop: 01/21/19 22:45 Last Infusion: 01/21/19 23:18 Dose: 0 mls/hr Documented by: [id number] Admin: 01/21/19 22:26 Dose: 999 mls/hr Documented by: [id number] Cefepime HCl (Maxipime) 2,000 mg in 20 mls @ 5 mls/min IV NOW STA; Protocol Stop: 01/21/19 21:42 Last Admin: 01/21/19 22:26 Dose: 5 mls/min Documented by: [id number] Ketorolac Tromethamine (Toradol) 10 mg IV NOW STA Stop: 01/21/19 21:38 Last Admin: 01/21/19 22:26 Dose: 10 mg Documented by: [id number] Ondansetron HCl (Zofran) 4 mg IV NOW STA Stop: 01/21/19 21:38 Last Admin: 01/21/19 22:26 Dose: 4 mg Documented by: [id number] Medical Decision Making Differential Diagnosis Differential diagnosis includes: bowel obstruction, bowel perforation, intraabdominal bleeding, diverticulitis, pancreatitis, foodborne or viral illness, appendicitis, UTI, rupture, rhabdomyolysis. Medical Records Attestation: I reviewed the patient's medical records. Home Medications Current Medication List: was personally reviewed by me Laboratory Data Attestation: I reviewed the patient's lab results. Result diagrams: 01/21/19 21:59 01/21/19 21:59 Lab Results 01/21/19 01/21/19 01/21/19 Range/Units 21:59 21:59 21:59 WBC 4.27 L (4.8-10.8) K/uL RBC 3.98 L (4.7-6.1) M/uL Hgb 13.2 L (14.0-18.0) g/dL Hct 38.4 L (42-52) % MCV 96.5 (80-100) fL MCH 33.2 (25-34) pg MCHC 34.4 (32-36) g/dL RDW Std Deviation 45.4 (36.4-46.3) fL RDW Coeff of Yudith 12.9 (11.5-14.5) % Plt Count 155 (130-400) K/uL MPV 9.9 (7.4-10.4) fL Immature Gran % (Auto) 0.0 % Neut % (Auto) 52.5 % Lymph % (Auto) 35.1 % Will % (Auto) 7.5 % Eos % (Auto) 3.5 % Baso % (Auto) 1.4 % Immature Gran # (Auto) 0.00 (0.00-0.02) K/uL Neut # (Auto) 2.24 (1.4-6.5) K/uL Lymph # (Auto) 1.50 (1.2-3.4) K/uL Will # (Auto) 0.32 (0.11-0.59) K/uL Eos # (Auto) 0.15 (0-0.5) K/uL Baso # (Auto) 0.06 (0-0.2) K/uL PT 10.3 (9.0-12.0) Seconds INR 1.0 (0.9-1.1) Sodium 142 (136-145) mmol/L Potassium 3.7 (3.5-5.1) mmol/L Chloride 105 (98-107) mmol/L Carbon Dioxide 30 (21-32) mmol/L Anion Gap 7.0 (3-11) BUN 19 H (7-18) mg/dl Creatinine 0.89 (0.6-1.4) mg/dl Est Cr Clr Drug Dosing Not Reportable Est GFR ( Amer) 112.3 Est GFR (Non-Af Amer) 96.9 BUN/Creatinine Ratio 21.4 H (10-20) Glucose 107 H (70-99) mg/dl Lactate (0.4-2.0) mmol/L Calcium 8.8 (8.5-10.1) mg/dl Magnesium 2.1 (1.8-2.4) mg/dl Total Bilirubin 0.8 (0.2-1) mg/dl AST 46 H (15-37) U/L ALT 37 (12-78) U/L Alkaline Phosphatase 50 (45-117) U/L Total Creatine Kinase 653 H (39-308) U/L Troponin I 0.034 (0-0.045) ng/ml Total Protein 6.8 (6.4-8.2) gm/dl Albumin 3.8 (3.4-5.0) gm/dl Globulin 3.0 (2.5-4.0) gm/dl Albumin/Globulin Ratio 1.3 (0.9-2) Lipase 135 (73-393) U/L Urine Color Urine Appearance (Clear) Urine pH (4.5-7.5) Ur Specific [place] (1.000-1.030) Urine Protein (Negative) Urine Glucose (UA) (Negative) Urine Ketones (Negative) Urine Blood (Negative) Urine Nitrite (Negative) Urine Bilirubin (Negative) Urine Urobilinogen (Negative) Ur Leukocyte Esterase (Negative) 01/21/19 01/21/19 Range/Units 21:59 23:55 WBC (4.8-10.8) K/uL RBC (4.7-6.1) M/uL Hgb (14.0-18.0) g/dL Hct (42-52) % MCV (80-100) fL MCH (25-34) pg MCHC (32-36) g/dL RDW Std Deviation (36.4-46.3) fL RDW Coeff of Yudith (11.5-14.5) % Plt Count (130-400) K/uL MPV (7.4-10.4) fL Immature Gran % (Auto) % Neut % (Auto) % Lymph % (Auto) % Will % (Auto) % Eos % (Auto) % Baso % (Auto) % Immature Gran # (Auto) (0.00-0.02) K/uL Neut # (Auto) (1.4-6.5) K/uL Lymph # (Auto) (1.2-3.4) K/uL Will # (Auto) (0.11-0.59) K/uL Eos # (Auto) (0-0.5) K/uL Baso # (Auto) (0-0.2) K/uL PT (9.0-12.0) Seconds INR (0.9-1.1) Sodium (136-145) mmol/L Potassium (3.5-5.1) mmol/L Chloride (98-107) mmol/L Carbon Dioxide (21-32) mmol/L Anion Gap (3-11) BUN (7-18) mg/dl Creatinine (0.6-1.4) mg/dl Est Cr Clr Drug Dosing Est GFR ( Amer) Est GFR (Non-Af Amer) BUN/Creatinine Ratio (10-20) Glucose (70-99) mg/dl Lactate 1.3 (0.4-2.0) mmol/L Calcium (8.5-10.1) mg/dl Magnesium (1.8-2.4) mg/dl Total Bilirubin (0.2-1) mg/dl AST (15-37) U/L ALT (12-78) U/L Alkaline Phosphatase (45-117) U/L Total Creatine Kinase (39-308) U/L Troponin I (0-0.045) ng/ml Total Protein (6.4-8.2) gm/dl Albumin (3.4-5.0) gm/dl Globulin (2.5-4.0) gm/dl Albumin/Globulin Ratio (0.9-2) Lipase (73-393) U/L Urine Color Yellow Urine Appearance Clear (Clear) Urine pH 6.5 (4.5-7.5) Ur Specific [place] > 1.045 H (1.000-1.030) Urine Protein Negative (Negative) Urine Glucose (UA) Negative (Negative) Urine Ketones 1+ H (Negative) Urine Blood Negative (Negative) Urine Nitrite Positive A (Negative) Urine Bilirubin Negative (Negative) Urine Urobilinogen Negative (Negative) Ur Leukocyte Esterase Negative (Negative) Imaging Data Radiologist's Impression: Radiology results as stated below per my review and the radiologist's interpretation: XR chest 1V portable CLINICAL HISTORY: Epigastric pain. COMPARISON STUDY: Chest radiograph May 19, 2017. FINDINGS: Lung volumes are normal. Lungs are clear. There is no pneumothorax or pleural effusion. Cardiac size is normal. Mediastinal contours are normal. There is no evidence for pulmonary edema. IMPRESSION: No acute cardiopulmonary findings. Electronically signed by: Mario Hurt M.D. 01/21/2019 10:[address] OF THE ABDOMEN AND PELVIS WITH CONTRAST CLINICAL HISTORY: Evaluate for obstruction or perforation. COMPARISON STUDY: CT of the abdomen and pelvis May 19, 2017. TECHNIQUE: Following IV administration of Optiray-320, axial images of the abdomen and pelvis were obtained from the lung bases to the proximal femurs. Images were reviewed in the axial, sagittal, and coronal planes. IV contrast was administered without complication. Automated exposure control was utilized for the study. A dose lowering technique was utilized adhering to the principles of ALARA. CT DOSE: 266.06 mGy.cm FINDINGS: Lung bases are unremarkable. No pneumatosis, free air or portal venous gas is present. Evaluation of the abdomen and pelvis is difficult given a paucity of intra-abdominal fat. Small amount of ascites within the pelvis is noted. Periportal edema within the liver is noted. The spleen, adrenal glands, kidneys and pancreas are unremarkable. Is no peripancreatic infiltration. There are multiple loops of mildly dilated fluid-filled small bowel. Possible transition point within the lower abdomen on image 274 of 436 is noted. Suspected decompressed small bowel loops are present. Bladder is moderately distended. Moderate amount of stool within the right colon is noted. No suspicious osseous lesions are noted. IMPRESSION: 1. Multiple loops of mildly dilated fluid-filled small bowel with possible transition point within the lower abdomen. The findings favor a small bowel obstruction. An enteritis could appear similar although is considered less likely. 2. Technically difficult study to interpret given paucity of intra-abdominal fat . 3. Trace ascites. 4. Moderate distention of the bladder. Electronically signed by: Mario Hurt M.D. 01/21/2019 11:20 PM ECG Data Attestation: I personally reviewed and interpreted this ECG as follows: Indication: abdominal pain Rate (beats per minute): 51 Rhythm: sinus bradycardia Findings: no PVC and no ST elevation Blood Pressure Blood Pressure Findings: Normal blood pressure MDM Narrative There is no leukocytosis, in fact, the white count is slightly low. The patient is mildly anemic. No coagulopathy. No significant electrolyte abnormality. Lactic acid level is not elevated making sepsis less likely. No concerning liver enzyme elevation. Total CK was somewhat elevated at over 600, this is from all of his recent running. I do not think this is indicative of true rhabdomyolysis. Lipase was normal. EKG shows a sinus bradycardia, no acute ischemia. Cardiac enzyme testing x1 is not consistent with acute cardiac injury. Chest film does not show pneumonia or CHF, no free air. Abdominal and pelvis CT does show evidence for a small bowel obstruction, no evidence for free air. The patient presents with vomiting and abdominal pain. He received IV Tylenol, IV Benadryl, IV Toradol, IV Zofran and IV saline. Was given IV cefepime for empiric antibiotic coverage. The patient is feeling improved. I have ordered for an NG tube to low intermittent suction. I did contact general surgery. The general surgical service felt the patient should be admitted to the hospitalist/medicine service. No acute surgical intervention was felt warranted this evening. I did speak with the human services case manager. The on-call hospitalist was consulted. Impression & Plan Small bowel obstruction, Vomiting, Dehydration Discharge Plan Visit Data Chief Complaint: Abdominal Pain Stated Complaint: FEVER, SHAKES, ABDOMINAL PAIN ED Provider: Jeffery Agee Discharge Problem: Small bowel obstruction, Vomiting, Dehydration Patient Disposition: Admitted As Inpatient Forms Stand Alone Forms: Call Back Authorization, My [facility] Prescriptions Prescriptions: No Action No Known Home Medications RF: 0 Referrals Referrals: Gwyn Egan III, MD [Primary Care Provider] - Discharge Problem: Vomiting Qualifiers: Vomiting type: unspecified Vomiting Intractability: non-intractable Nausea pr esence: unspecified Qualified Code(s): R11.10 - Vomiting, unspecified The scribe's documentation has been prepared under my direction and personally reviewed by me in its entirety. I confirm that the note above accurately reflects all work, treatment, procedures, and medical decision making performed by me.
[2019-01-22 00:16] LABS: Appearance Urine Clear (Clear); Bilirubin Urine Negative (Negative); Blood Urine Negative (Negative); Color Urine Yellow; Glucose Urine UA Negative (Negative); Ketones Urine 1+ (Negative); Leukocyte Esterase Urine Negative (Negative); Nitrite Urine Positive (Negative); Protein Urine Negative (Negative); RBC Urine Automated 0-4 /hpf (0-4); Specific Gravity Urine > 1.045 (1.000-1.030); Urobilinogen Urine Negative (Negative); pH Urine 6.5 (4.5-7.5)
--- NOTE | 2019-01-22 00:30 | History & Physical Report ---
Date of Service January 22, 2019 Assessment & Plan (1) Small bowel obstruction: 53-year-old male with history of prior SBO and neurogenic bladder (self caths) presents with recurrent lower abdominal pain associated with nausea and vomiting today. Patient had appendectomy at 6 months of age and surgery for SBO in January 2014. Was also admitted in April 2017 for SBO which self resolved. Patient reports developed abdominal pain this evening around 8 PM. Vomited x1, NB NB. Associate with chills and nausea Abdominal pain/nausea/vomiting: SBO Afebrile no WBC elevation CT abdomen: Multiple loops mildly dilated fluid-filled small bowel, incision point lower abdomen fevers SBO versus enteritis, trace ascites, moderate distended bladder Lactate normal LFT and lipase reassuring Blood cultures x2 pending Received IV Tylenol, Benadryl, Toradol, Zofran, 1 L NS, cefepime in the ED Tylenol IV and Toradol for pain Zofran as needed for nausea/vomiting N.p.o., started on LR 125 cc/h NG held as appears to be clinically improving Surgery consulted given extensive history of SBO requiring surgery in the past Neurogenic bladder Patient can self cath as needed, has supplies with him Code: Full DVT prophylaxis: SCDs, encourage ambulation, low risk Disposition: MedSurg (2) Neurogenic bladder disorder: (3) Hx of appendectomy: History of Present Illness Chief Complaint: Abdominal pain/nausea/vomiting Primary Care Provider: Gwyn Egan MD 53-year-old male with history of prior SBO and neurogenic bladder (self caths) presents with recurrent lower abdominal pain associated with nausea and vomiting today. Patient had appendectomy at 6 months of age and surgery for SBO in January 2014. Was also admitted in April 2017 for SBO which self resolved. Patient reports developed abdominal pain this evening around 8 PM. Vomited x1, NB NB. Associate with chills and nausea. Had bowel movement this morning which was normal in consistency, brown and nonbloody. Has not passed gas since pain started this evening. Denies any fever, headache, lightheadedness, chest pain, shortness of breath, diarrhea, constipation, dysuria, hematuria. Of note patient has neurogenic bladder and self caths Surgical history as above Allergies: Penicillin Social history: Has about 5 ounces of wine every evening, denies any tobacco use or recreational drug use Allergies Allergy/AdvReac Type Severity Reaction Status Date / Time Penicillins Allergy Unknown Unknown Verified 01/21/19 22:23 Home Medications Home Medications Medication Instructions Recorded Confirmed Type No Known Home Medications 01/21/19 01/21/19 History Past Med/Surg History Medical History Bowel obstruction (Resolved) Hyperlipidemia (Acute) Nonvenomous insect bite of multiple sites (Acute) Neurogenic bladder disorder (Chronic) Surgical History Hx of appendectomy (Resolved) Social History Preferred Language: Italian Communication Ability: Effective Visual Impairment: No Limitations Hearing Ability: Normal Home Health Administrator Required: No Beliefs That Will Affect Care: None marital status: Current Living Situation: Spouse current occupational status: employed 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 [employer] Other Information That Helps Us Care for You: No Feels Safe at Home: Yes Safety Concerns: Feels Safe At This Time Smoking Status: Never smoker Do You Dip or Chew Tobacco: No ; Second Hand Exposure: No ; Tobacco Cessation Education Requested by Patient: No Hx Alcohol Use: Yes Alcohol type: wine Alcohol Intake Frequency: Daily Alcohol Intake Frequency Comment: 4-5oz Hx Substance Use: No Dental Care, Regularly: Yes Physical Activity Frequency: Daily Review of Systems Review of Systems: As per HPI Physical Exam Physical Exam: General: In NAD, reports some pain despite pain medications when evaluated Neuro: A&O x 4 Pulm: CTAB equal breath sounds bilaterally CV: RRR, no m/r/g Abdomen:hyperactive BS, no TTP in all quadrants, non-distended LE: no LE edema, no calf TTP Results & Data Vital Signs (Past 12 Hours) Vital Signs Temp Pulse Resp BP Pulse Ox 01/21/19 23:56 99 01/21/19 23:30 51 L 15 118/69 100 01/21/19 23:01 58 L 16 127/70 99 01/21/19 21:25 36.4 C L 75 18 99/62 L 99 Laboratory Results Abnormal lab results 01/21/19 01/21/19 01/21/19 Range/Units 21:59 21:59 23:55 WBC 4.27 L (4.8-10.8) K/uL RBC 3.98 L (4.7-6.1) M/uL Hgb 13.2 L (14.0-18.0) g/dL Hct 38.4 L (42-52) % BUN 19 H (7-18) mg/dl BUN/Creatinine Ratio 21.4 H (10-20) Glucose 107 H (70-99) mg/dl AST 46 H (15-37) U/L Total Creatine Kinase 653 H (39-308) U/L Ur Specific [place] > 1.045 H (1.000-1.030) Urine Ketones 1+ H (Negative) Urine Nitrite Positive A (Negative) Diagnostic Findings CT OF THE ABDOMEN AND PELVIS WITH CONTRAST CLINICAL HISTORY: Evaluate for obstruction or perforation. COMPARISON STUDY: CT of the abdomen and pelvis May 19, 2017. TECHNIQUE: Following IV administration of Optiray-320, axial images of the abdomen and pelvis were obtained from the lung bases to the proximal femurs. Images were reviewed in the axial, sagittal, and coronal planes. IV contrast was administered without complication. Automated exposure control was utilized for the study. A dose lowering technique was utilized adhering to the principles of ALARA. CT DOSE: 266.06 mGy.cm FINDINGS: Lung bases are unremarkable. No pneumatosis, free air or portal venous gas is present. Evaluation of the abdomen and pelvis is difficult given a paucity of intra-abdominal fat. Small amount of ascites within the pelvis is noted. Periportal edema within the liver is noted. The spleen, adrenal glands, kidneys and pancreas are unremarkable. Is no peripancreatic infiltration. There are multiple loops of mildly dilated fluid-filled small bowel. Possible transition point within the lower abdomen on image 274 of 436 is noted. Suspected decompressed small bowel loops are present. Bladder is moderately distended. Moderate amount of stool within the right colon is noted. No suspicious osseous lesions are noted. IMPRESSION: 1. Multiple loops of mildly dilated fluid-filled small bowel with possible transition point within the lower abdomen. The findings favor a small bowel obstruction. An enteritis could appear similar although is considered less likely. 2. Technically difficult study to interpret given paucity of intra-abdominal fat. 3. Trace ascites. 4. Moderate distention of the bladder. XR chest 1V portable CLINICAL HISTORY: Epigastric pain. COMPARISON STUDY: Chest radiograph May 19, 2017. FINDINGS: Lung volumes are normal. Lungs are clear. There is no pneumothorax or pleural effusion. Cardiac size is normal. Mediastinal contours are normal. There is no evidence for pulmonary edema. IMPRESSION: No acute cardiopulmonary findings. Medications Administered Current Inpatient Medications Ioversol (Optiray 320 100ml) 89 ml IV ONCE PRN PRN Reason: Interaction Checking Stop: 01/25/19 22:56 Last Admin: 01/21/19 22:58 Dose: 89 ml Documented by: Code Status & VTE Plan Code Status Full VTE Prophylaxis Plan VTE Prophylaxis will be ordered: Yes Supervising Physician Co-Signing Physician Notes Attending addendum: I have physically seen this patient, have supervised the medical residents activities, and agree with the H&P unless as otherwise noted. Assessment and Plan: Recurrent small bowel obstruction- 01/2014, first small bowel obstruction, surgery was required. 05/19/2017, first recurrent small bowel obstruction, resolved without surgical intervention. Admit to medical surgical floor. N.p.o. IV fluids. Zofran 4 mg IV every 6 hours PRN. Famotidine 20 mg IV every 12 hours. Acetaminophen 1 g IV every 8 hours PRN mild pain or temperature. Chronic neurogenic bladder- Patient will continue to self cath 3 times daily and as needed Remainder of orders and notations as noted. PG Care Time/CCT Total # of Minutes Spent Total Time Spent with Patient: Total time spent is greater than 50% in coordination of care (as documented) at patient's floor/unit and/or counseling patient: Resident Activity Tracking Resident Involvement: Resident Care Provided Care Provided: Adult Hospital Medicine
[2019-01-22 00:38] LABS: Bacteria Urine Automated 1+ (Negative)
[2019-01-22] MEDS: LACTATED RINGER'S 1,000 ML IV SCH ×3 (02:20→17:32)
--- NOTE | 2019-01-22 10:35 | Family Medicine Progress Note ---
Date of Service January 22, 2019 Assessment & Plan (1) Small bowel obstruction: 53 yo M PMHx appendectomy removal at age 6 months with multiple SBO in the past here for SBO, improving while NPO overnight. - Initially advanced to clear liquid diet however surgery consult determined minimal bowel sounds with abdominal distention, made NPO and NG tube placed. - Pt comfortable now in room. - PRN Zofran for nausea, Tylenol for pain. - BMP and KUB AM, will reassess for advancement of diet. Neurogenic Bladder - pt self-catheterizes and has proper supplies for this. - no dysuria or hematuria, Cr normal. Dispo: Med/Surg DVT PPx: SCDs and encourage ambulation FEN: NPO, Fluids LR 125mL/hr, Electrolytes normal Code Status: FULL CODE Present on Admission?: Yes (2) Neurogenic bladder disorder: Present on Admission?: Yes Supervising Physician Co-Signing Physician Notes Resident Physician Supervision Note: I independently interviewed and examined the patient and verified the connors history and physical, reviewed labs and image studies, discussed the case with the resident Dr. Engel and agree with the findings and care plan. Subjective No acute events overnight, today reports some mild nausea but no vomiting and reports a small firm BM this morning at 730AM. Has been NPO overnight. No fevers or chills, no abdominal pain but endorses bloating. Review of Systems Constitutional: no fever, no chills and no malaise Respiratory: no cough, no chest congestion and no dyspnea no SOB, no wheezing Cardiovascular: no chest pain and no dyspnea Gastrointestinal: + bloating and + nausea; no abdominal pain, no belching, no vomiting and no diarrhea/loose stools positive for flatulence and a small BM. Genitourinary: no dysuria and no hematuria (self catheterizes for neurogenic bladder) Physical Exam Constitutional: WD/WN, vitals as above ENMT: Mouth: no lip abnormality, no oropharynx abnormality, no oral mucosal abnormality and no tongue abnormality Respiratory: normal respiratory effort, lungs clear to auscultation Cardiovascular: RRR, no murmur, no edema Gastrointestinal (Abdomen): Inspection/Auscultation: abdomen normal to inspection and + abdomen distended (minimally); + abnormal bowel sounds (hypoactive bowel sounds) Percussion/Palpation: abdomen soft; abdomen nontender, no guarding and abdomen not rigid no suprapubic tenderness Skin: no rashes, warm and dry Psychiatric: A+Ox3, euthymic affect Results & Data Vital Signs (Past 12 Hours) Vital Signs Temp Pulse Pulse Pulse Resp BP BP 01/22/19 07:40 36.7 C 52 L 18 129/71 01/22/19 01:25 36.8 C 49 L 12 109/61 01/22/19 01:15 82 18 122/69 01/21/19 23:56 01/21/19 23:30 51 L 15 118/69 01/21/19 23:01 58 L 16 127/70 Pulse Ox 01/22/19 07:40 100 01/22/19 01:25 98 01/22/19 01:15 99 01/21/19 23:56 99 01/21/19 23:30 100 01/21/19 23:01 99 PG Care Time/CCT Total # of Minutes Spent Total Time Spent with Patient: Total time spent is greater than 50% in coordination of care (as documented) at patient's floor/unit and/or counseling patient: Resident Activity Tracking Resident Involvement: Resident Care Provided Care Provided: Adult Hospital Medicine
--- NOTE | 2019-01-22 11:20 | Surgery Consultation ---
Date of Consultation January 22, 2019 Assessment & Plan (1) Small bowel obstruction: pt is a 53 year old male who was admitted to hospital for SBO, CT scan, dx SBO, IMP: SBO, Plan, I agree with hospitalist treatment plan, conservative treatment first, NG tube, pt agree with NG tube insertion, no surgical intervention now, repeat labs and KUB in am, will F/U History of Present Illness Attending Physician: Abida Velázquez MD Chief Complaint: Abdominal pain/nausea/vomiting Primary Care Provider: Gwyn Egan MD 53-year-old male with history of prior SBO and neurogenic bladder (self caths) presents with recurrent lower abdominal pain associated with nausea and vomiting today. Patient had appendectomy at 6 months of age and surgery for SBO in January 2014. Was also admitted in April 2017 for SBO which self resolved. Patient reports developed abdominal pain this evening around 8 PM. Vomited x1, NB NB. Associate with chills and nausea. Had bowel movement this morning which was normal in consistency, brown and nonbloody. Has not passed gas since pain started this evening. Denies any fever, headache, lightheadedness, chest pain, shortness of breath, diarrhea, constipation, dysuria, hematuria. Of note patient has neurogenic bladder and self caths I ( Shaklia Zamorano MD ) reviewed pt's H/P with pt, pt is still have some nausea, and abdominal distend, pt pass small amount gas, Allergies Allergy/AdvReac Type Severity Reaction Status Date / Time Penicillins Allergy Unknown Unknown Verified 01/21/19 22:23 Home Medications Home Medications Medication Instructions Recorded Confirmed Type No Known Home Medications 01/21/19 01/21/19 History Patient History Medical History Bowel obstruction (Resolved) Hyperlipidemia (Acute) Nonvenomous insect bite of multiple sites (Acute) Neurogenic bladder disorder (Chronic) Surgical History Hx of appendectomy (Resolved) Social History Preferred Language: Indonesian Communication Ability: Effective Visual Impairment: No Limitations Hearing Ability: Normal Senior Network Administrator Required: No Beliefs That Will Affect Care: None marital status: Current Living Situation: Spouse current occupational status: employed 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 [employer] Other Information That Helps Us Care for You: No Feels Safe at Home: Yes Safety Concerns: Feels Safe At This Time Smoking Status: Never smoker Do You Dip or Chew Tobacco: No ; Second Hand Exposure: No ; Tobacco Cessation Education Requested by Patient: No Hx Alcohol Use: Yes Alcohol type: wine Alcohol Intake Frequency: Daily Alcohol Intake Frequency Comment: 4-5oz Hx Substance Use: No Dental Care, Regularly: Yes Physical Activity Frequency: Daily Review of Systems Review of Systems: All systems reviewed & are unremarkable except as noted in HPI & below Physical Exam Constitutional: WD/WN, vitals as above well developed and well nourished ENMT: external ear and nose normal, oropharynx normal Neck: trachea midline, no thyromegaly Respiratory: normal respiratory effort, lungs clear to auscultation normal respiratory effort Cardiovascular: Rate/Rhythm: regular rate and regular rhythm Gastrointestinal (Abdomen): normal bowel sounds, soft, nontender, no hepatosplenomegaly Inspection/Auscultation: + abdomen distended Percussion/Palpation: abdomen soft some tenderness at lower abdomen, no rebound pain, BS + Neurologic: patellar DTR's 2+ bilat, sensation intact Psychiatric: A+Ox3, euthymic affect Orientation: alert and oriented x 3 Genitourinary: no testicular masses, no penis abnormality Results & Data Vital Signs (Past 12 Hours) Vital Signs Temp Pulse Pulse Pulse Resp BP BP 01/22/19 07:40 36.7 C 52 L 18 129/71 01/22/19 01:25 36.8 C 49 L 12 109/61 01/22/19 01:15 82 18 122/69 01/21/19 23:56 01/21/19 23:30 51 L 15 118/69 01/21/19 23:01 58 L 16 127/70 Pulse Ox 01/22/19 07:40 100 01/22/19 01:25 98 01/22/19 01:15 99 01/21/19 23:56 99 01/21/19 23:30 100 01/21/19 23:01 99 Laboratory Results Abnormal lab results 01/21/19 01/21/19 01/21/19 Range/Units 21:59 21:59 23:55 WBC 4.27 L (4.8-10.8) K/uL RBC 3.98 L (4.7-6.1) M/uL Hgb 13.2 L (14.0-18.0) g/dL Hct 38.4 L (42-52) % BUN 19 H (7-18) mg/dl BUN/Creatinine Ratio 21.4 H (10-20) Glucose 107 H (70-99) mg/dl AST 46 H (15-37) U/L Total Creatine Kinase 653 H (39-308) U/L Ur Specific [place] > 1.045 H (1.000-1.030) Urine Ketones 1+ H (Negative) Urine Nitrite Positive A (Negative) U Epithel Cells (Auto) 10-20 H (0-5) /lpf Urine Bacteria (Auto) 1+ H (Negative) Diagnostic Findings CT OF THE ABDOMEN AND PELVIS WITH CONTRAST CLINICAL HISTORY: Evaluate for obstruction or perforation. COMPARISON STUDY: CT of the abdomen and pelvis May 19, 2017. TECHNIQUE: Following IV administration of Optiray-320, axial images of the abdomen and pelvis were obtained from the lung bases to the proximal femurs. Images were reviewed in the axial, sagittal, and coronal planes. IV contrast was administered without complication. Automated exposure control was utilized for the study. A dose lowering technique was utilized adhering to the principles of ALARA. CT DOSE: 266.06 mGy.cm FINDINGS: Lung bases are unremarkable. No pneumatosis, free air or portal venous gas is present. Evaluation of the abdomen and pelvis is difficult given a paucit y of intra-abdominal fat. Small amount of ascites within the pelvis is noted. Periportal edema within the liver is noted. The spleen, adrenal glands, kidneys and pancreas are unremarkable. Is no peripancreatic infiltration. There are multiple loops of mildly dilated fluid-filled small bowel. Possible transition point within the lower abdomen on image 274 of 436 is noted. Suspected decompressed small bowel loops are present. Bladder is moderately distended. Moderate amount of stool within the right colon is noted. No suspicious osseous lesions are noted. IMPRESSION: 1. Multiple loops of mildly dilated fluid-filled small bowel with possible transition point within the lower abdomen. The findings favor a small bowel obstruction. An enteritis could appear similar although is considered less likely. 2. Technically difficult study to interpret given paucity of intra-abdominal fat. 3. Trace ascites. 4. Moderate distention of the bladder.
[2019-01-22] MEDS: FAMOTIDINE 20 MG in SYRINGE 3 ML IV SCH (12:10)
[2019-01-22] MEDS: ONDANSETRON INJ 2 MG/ML 2 ML VIAL IV PRN (16:07)
[2019-01-22] MEDS: KETOROLAC 30 MG/ML VIAL IV PRN (20:34)
[2019-01-23] MEDS: LACTATED RINGER'S 1,000 ML IV SCH ×4 (01:16→23:33)
--- NOTE | 2019-01-23 07:43 | Family Medicine Progress Note ---
Date of Service January 23, 2019 Assessment & Plan (1) Small bowel obstruction: 53 yo M PMHx appendectomy removal at age 6 months with multiple SBO in the past here for SBO, improving while NPO with NG tube overnight. SBO - Pt comfortable in room, no nausea or vomiting overnight, some constipation but passing some gas from below. Exam with minimal bowel sounds today, but abdomen softer to exam than yesterday. - Zofran PRN nausea, Tylenol and Toradol PRN pain. - BMP and KUB AM, will reassess for advancement of diet. - Appreciate surgery recommendations: will consider exploratory laparotomy if no clinical improvement tomorrow and no improvement on imaging. Neurogenic bladder - pt self-catheterizes and has proper supplies for this - no dysuria or hematuria, Cr normal. Dispo: Med/Surg DVT PPx: SCDs and encourage ambulation FEN: NPO, Fluids LR 125mL/hr, Electrolytes normal Code Status: FULL CODE (2) Neurogenic bladder disorder: Supervising Physician Co-Signing Physician Notes Resident Physician Supervision Note: I independently interviewed and examined the patient and verified the connors history and physical, reviewed labs and image studies, discussed the case with the resident Dr. Engel and agree with the findings and care plan. Subjective Pt with no acute events overnight. Reports no more nausea since yesterday afternoon, no vomiting. Has not had a BM since yesterday but reports passing gas. No belching. No fevers or chills, no abdominal pain. Review of Systems Review of Systems: As per HPI Constitutional: no fever and no chills Ear, Nose, Mouth, Throat: + sore throat (mild, due to NG tube); no mouth lesions Respiratory: no SOB, no wheezing Gastrointestinal: + bloating and + nausea; no abdominal pain, no belching, no vomiting and no diarrhea/loose stools positive for small amount of flat ulence, no BM overnight Genitourinary: no dysuria and no hematuria Neurologic: AAOx3 Physical Exam Constitutional: WD/WN, vitals as above ENMT: Mouth: no lip abnormality, no oropharynx abnormality, no oral mucosal abnormality and no tongue abnormality NG tube in place Respiratory: normal respiratory effort, lungs clear to auscultation Cardiovascular: RRR, no murmur, no edema Gastrointestinal (Abdomen): Inspection/Auscultation: abdomen normal to inspection; abdomen not distended (minimally) and + abnormal bowel sounds (minimal bowel sounds) Percussion/Palpation: abdomen soft; abdomen nontender, no guarding and abdomen not rigid Skin: no rashes, warm and dry Psychiatric: A+Ox3, euthymic affect Results & Data Vital Signs (Past 12 Hours) Vital Signs Temp Pulse Resp BP Pulse Ox 01/23/19 07:36 37 C 50 L 16 125/68 97 01/22/19 23:41 36.9 C 48 L 16 123/65 97 PG Care Time/CCT Total # of Minutes Spent Total Time Spent with Patient: Total time spent is greater than 50% in coordination of care (as documented) at patient's floor/unit and/or counseling patient: Resident Activity Tracking Resident Involvement: Resident Care Provided Care Provided: Adult Hospital Medicine
[2019-01-23] MEDS: FAMOTIDINE 20 MG in SYRINGE 3 ML IV SCH (08:08)
--- NOTE | 2019-01-23 08:24 | XRay Report ---
KUB HISTORY: Small bowel obstruction. Follow-up. COMPARISON: Abdomen and pelvis CT 01/21/2019. FINDINGS: Redemonstration of the multiple dilated loops of small bowel within the abdomen consistent with a small bowel obstruction. Large amount of well-formed stool within the proximal colon is also u nchanged. Nasogastric tube is curled within the stomach. Posterior fusion defect at L5. No renal daniel culi. No ureteral calculi. No pneumoperitoneum or pneumatosis. IMPRESSION: 1. No significant change in the dilated loops of small bowel consistent with a small bowel obstructio n. 2. Nasogastric tube is curled within the proximal stomach. Electronically signed by: Jose M Weathers M.D. 01/23/2019 8:22 AM
[2019-01-23 08:52] LABS: BUN Creatinine Ratio 18.9 (10-20); Calcium 9.2 mg/dl (8.5-10.1); Creatinine Clr Calc Pharmacy 71.9 ml/min
[2019-01-23] MEDS ORDERED: bisacodyL 10 MG SUPP PR STA (09:48)
--- NOTE | 2019-01-23 09:48 | Surgery Progress Note ---
Date of Service pass a little gas, no BM yet, mild abdominal pain, NG - 300ml January 23, 2019 Assessment & Plan (1) Small bowel obstruction: pt is a 53 year old male who was admitted to hospital for SBO, CT scan, dx SBO, IMP: SBO, Plan, I agree with hospitalist treatment plan, conservative treatment first, NG tube, pt agree with NG tube insertion, no surgical intervention now, repeat labs and KUB in am, will F/U 01/23/2019 9:51am no change, still SBO, KUB- still SBO, I recommend to do exploratory laparotomy tomorrow if pt is still not pass gas or BM, pt and his agree with plan, Subjective No acute events overnight, today reports some mild nausea but no vomiting and reports a small firm BM this morning at 730AM. Has been NPO overnight. No fevers or chills, no abdominal pain but endorses bloating. Physical Exam Constitutional: WD/WN, vitals as above well developed and well nourished ENMT: external ear and nose normal, oropharynx normal Neck: trachea midline, no thyromegaly Respiratory: normal respiratory effort, lungs clear to auscultation normal respiratory effort Cardiovascular: Rate/Rhythm: regular rate and regular rhythm Gastrointestinal (Abdomen): normal bowel sounds, soft, nontender, no hepatosplenomegaly Inspection/Auscultation: + abdomen distended Percussion/Palpation: abdomen soft Neurologic: patellar DTR's 2+ bilat, sensation intact Psychiatric: A+Ox3, euthymic affect Orientation: alert and oriented x 3 Genitourinary: no testicular masses, no penis abnormality Results & Data Vital Signs (Past 12 Hours) Vital Signs Temp Pulse Resp BP Pulse Ox 01/23/19 07:36 37 C 50 L 16 125/68 97 01/22/19 23:41 36.9 C 48 L 16 123/65 97 Diagnostic Findings KUB HISTORY: Small bowel obstruction. Follow-up. COMPARISON: Abdomen and pelvis CT 01/21/2019. FINDINGS: Redemonstration of the multiple dilated loops of small bowel within the abdomen consistent with a small bowel obstruction. Large amount of well- formed stool within the proximal colon is also unchanged. Nasogastric tube is curled within the stomach. Posterior fusion defect at L5. No renal calculi. No ureteral calculi. No pneumoperitoneum or pneumatosis. IMPRESSION: 1. No significant change in the dilated loops of small bowel consistent with a small bowel obstruction. 2. Nasogastric tube is curled within the proximal stomach.
[2019-01-23] MEDS: ONDANSETRON INJ 2 MG/ML 2 ML VIAL IV PRN (19:00)
[2019-01-23] MEDS: KETOROLAC 30 MG/ML VIAL IV PRN (20:54)
[2019-01-24] MEDS: LACTATED RINGER'S 1,000 ML IV SCH ×2 (07:30→18:18)
[2019-01-24 07:36] LABS: Basophils # (auto) 0.03 K/uL (0-0.2); Basophils % (auto) 0.5 %; Eosinophils # (auto) 0.09 K/uL (0-0.5); Eosinophils % (auto) 1.6 %; Hematocrit (blood only) 39.4 % (42-52); Hemoglobin 13.8 g/dL (14.0-18.0); Immature Granulocytes # (auto) 0.01 K/uL (0.00-0.02); Immature Granulocytes % (auto) 0.2 %; Lymphocytes # (auto) 0.88 K/uL (1.2-3.4); Mean Corpuscular Hemoglobin 33.9 pg (25-34); Mean Corpuscular Volume 96.8 fL (80-100); Mean Platelet Volume 9.6 fL (7.4-10.4); Monocytes # (auto) 0.46 K/uL (0.11-0.59); Monocytes % (auto) 8.3 %; Neutrophils # (auto) 4.04 K/uL (1.4-6.5); Neutrophils % (auto) 73.4 %; Platelet Count 158 K/uL (130-400); RDW Standard Deviation 45.7 fL (36.4-46.3); Red Blood Count 4.07 M/uL (4.7-6.1); White Blood Count 5.51 K/uL (4.8-10.8)
--- NOTE | 2019-01-24 07:59 | XRay Report ---
XR KUB/Abdomen 1 view CLINICAL HISTORY: 53 years-old Male presenting with SBO. TECHNIQUE: Single supine view of the abdomen was obtained. COMPARISON: 01/23/2019. FINDINGS: Persistent gaseous distention of small bowel loops with an apparent diameter of 5 cm though this is l ikely affected by magnification. Nasogastric tube terminates in the gastric fundus with sidehole also contained within the gastric lumen. The small bowel loops have a stacked appearance. Stool noted in the right colon. Paucity of bowel gas within the remainder of the colon. No gross pneumoperitoneum. Allowing for bowel gas and stool, no calcifications to suggest nephrolithiasis. Osseous structures normal. Lung bases clear. IMPRESSION: 1. Findings suggest persistent small bowel obstruction. This does not appear improved from prior. 2. Nasogastric tube within the gastric fundus; correlate for desired positioning. Electronically signed by: Branden Valencia M.D. 01/24/2019 7:57 AM
[2019-01-24 08:05] LABS: Calcium 8.8 mg/dl (8.5-10.1); Creatinine Clr Calc Pharmacy 84.2 ml/min; Est GFR (African American) 112.9; Est GFR (Non-African American) 97.4; Potassium 3.6 mmol/L (3.5-5.1)
[2019-01-24] MEDS: FAMOTIDINE 20 MG in SYRINGE 3 ML IV SCH (08:07)
--- NOTE | 2019-01-24 09:13 | Family Medicine Progress Note ---
Date of Service January 24, 2019 Assessment & Plan (1) Small bowel obstruction: 53 yo M PMHx appendectomy removal at age 6 months with multiple SBO in the past here for SBO, with no change clinically or radiologically overnight. SBO - Pt bloated and nauseated overnight, no BMs or gas passed since yesterday morning. - KUB this AM shows no improvement of SBO. - Zofran PRN nausea, Tylenol and Toradol PRN pain. - Will go to surgery today for exploratory laparotomy with possible bowel resection. Neurogenic bladder - pt self-catheterizes and has proper supplies for this - no dysuria or hematuria, Cr normal. Dispo: Med/Surg DVT PPx: SCDs and encourage ambulation FEN: NPO, Fluids LR 125mL/hr, Electrolytes normal Code Status: FULL CODE (2) Neurogenic bladder disorder: Supervising Physician Co-Signing Physician Notes Resident Physician Supervision Note: I independently interviewed and examined the patient and verified the connors history and physical, reviewed labs and image studies, discussed the case with the resident Dr. Engel and agree with the findings and care plan. Subjective Pt with some nausea overnight, still no BMs, no flatulence overnight. KUB this morning showed no changes in SPO. Pt denies fevers or chills, has no vomited, no shortness of breath or chest pain. Reports was seen by surgery and have decided to more forward with ex-lap. Review of Systems Constitutional: no fever and no chills Respiratory: no cough, no chest congestion, no dyspnea and no wheezing Cardiovascular: no chest pain and no palpitations Gastrointestinal: + bloating, + nausea and + constipation (no BM overnight); no abdominal pain, no vomiting and no diarrhea/loose stools Genitourinary: no dysuria and no hematuria Physical Exam Constitutional: WD/WN, vitals as above ENMT: external ear and nose normal, oropharynx normal Respiratory: normal respiratory effort, lungs clear to auscultation Cardiovascular: RRR, no murmur, no edema Gastrointestinal (Abdomen): Inspection/Auscultation: + abdomen distended; + abnormal bowel sounds Percussion/Palpation: + abdomen firm; abdomen nontender and no guarding Skin: no rashes, warm and dry Psychiatric: A+Ox3, euthymic affect Results & Data Vital Signs (Past 12 Hours) Vital Signs Temp Pulse Resp BP Pulse Ox 01/24/19 07:08 36.5 C 49 L 20 135/74 98 01/23/19 23:47 36.8 C 51 L 16 133/76 99 Laboratory Results Laboratory Results - last 24 hr 01/24/19 01/24/19 07:13 07:13 WBC 5.51 RBC 4.07 L Hgb 13.8 L Hct 39.4 L MCV 96.8 MCH 33.9 MCHC 35.0 RDW Std Deviation 45.7 RDW Coeff of Yudith 13.0 Plt Count 158 MPV 9.6 Immature Gran % (Auto) 0.2 Neut % (Auto) 73.4 Lymph % (Auto) 16.0 [place] % (Auto) 8.3 Eos % (Auto) 1.6 Baso % (Auto) 0.5 Immature Gran # (Auto) 0.01 Neut # (Auto) 4.04 Lymph # (Auto) 0.88 L [place] # (Auto) 0.46 Eos # (Auto) 0.09 Baso # (Auto) 0.03 Sodium 141 Potassium 3.6 Chloride 107 Carbon Dioxide 26 Anion Gap 8.0 BUN 26 H Creatinine 0.88 Est Cr Clr Drug Dosing 84.2 Est GFR ( Amer) 112.9 Est GFR (Non-Af Amer) 97.4 BUN/Creatinine Ratio 30.0 H Glucose 87 Calcium 8.8 Diagnostic Findings KUB 01/24/19: 1. Findings suggest persistent small bowel obstruction. This does not appear improved from prior. 2. Nasogastric tube within the gastric fundus; correlate for desired positioning. PG Care Time/CCT Total # of Minutes Spent Total Time Spent with Patient: Total time spent is greater than 50% in coordi nation of care (as documented) at patient's floor/unit and/or counseling patient: Resident Activity Tracking Resident Involvement: Resident Care Provided Care Provided: Adult Hospital Medicine
--- NOTE | 2019-01-24 09:56 | Surgery Progress Note ---
Date of Service January 24, 2019 Assessment & Plan (1) Small bowel obstruction: pt is a 53 year old male who was admitted to hospital for SBO, HD # 2 CT scan, dx SBO, History of prior SBO requiring surgery in 2014 and then conservative treatment in 2017 KUB today showing no signficant improvement of SBO, SB still dilated at 5 cm Still distended with brown NGT output, no real bowel function (only after suppository) Plan: Discussed with patient and KUB findings and no significant improvement of SBO. Discussed options of continue conservative management vs surgical exploration and release of adhesions and possible bowel resection. Risk of increasing small bowel dilatation and perforation if SBO persists. Patient would prefer surgical intervention. Plan to take patient to OR for ex lap, possible bowel resection. Discussed procedure and risks with patient, informed consent obtained keep npo keep NGT Dr. Zamorano has seen and examined pt, agrees with above, I did talk to pt about benefits, risks and alternatives of the surgery, the risks - infection, bleeding, injury bowel, anastomotic leak. pt and his understood, they agree with the surgery, I answered all questions, Subjective still not passing any gas, still feeling bloated and cramping abdominal pains does not feel there is any significant improvement Pt with some nausea overnight, still no BMs, no flatulence overnight. KUB this morning showed no changes in SPO. Pt denies fevers or chills, has no vomited, no shortness of breath or chest pain. Reports was seen by surgery and have decided to more forward with ex-lap. Physical Exam Constitutional: WD/WN, vitals as above well developed and well nourished; not ill appearing ENMT: external ear and nose normal, oropharynx normal Neck: trachea midline, no thyromegaly Respiratory: normal respiratory effort, lungs clear to auscultation normal respiratory effort Cardiovascular: Rate/Rhythm: regular rate and regular rhythm Gastrointestinal (Abdomen): normal bowel sounds, soft, nontender, no hepatosplenomegaly Inspection/Auscultation: + abdomen distended Percussion/Palpation: abdomen soft; abdomen nontender, no guarding and abdomen not rigid NGT present with dark brown output in canister Skin: no rashes, warm and dry Neurologic: patellar DTR's 2+ bilat, sensation intact Psychiatric: A+Ox3, euthymic affect Orientation: alert and oriented x 3 Genitourinary: no testicular masses, no penis abnormality Results & Data Vital Signs (Past 12 Hours) Vital Signs Temp Pulse Resp BP Pulse Ox 01/24/19 07:08 36.5 C 49 L 20 135/74 98 01/23/19 23:47 36.8 C 51 L 16 133/76 99 Laboratory Results 01/24/19 01/24/19 Range/Units 07:13 07:13 WBC 5.51 (4.8-10.8) K/uL RBC 4.07 L (4.7-6.1) M/uL Hgb 13.8 L (14.0-18.0) g/dL Hct 39.4 L (42-52) % MCV 96.8 (80-100) fL MCH 33.9 (25-34) pg MCHC 35.0 (32-36) g/dL RDW Std Deviation 45.7 (36.4-46.3) fL RDW Coeff of Yudith 13.0 (11.5-14.5) % Plt Count 158 (130-400) K/uL MPV 9.6 (7.4-10.4) fL Immature Gran % (Auto) 0.2 % Neut % (Auto) 73.4 % Lymph % (Auto) 16.0 % [place] % (Auto) 8.3 % Eos % (Auto) 1.6 % Baso % (Auto) 0.5 % Immature Gran # (Auto) 0.01 (0.00-0.02) K/uL Neut # (Auto) 4.04 (1.4-6.5) K/uL Lymph # (Auto) 0.88 L (1.2-3.4) K/uL [place] # (Auto) 0.46 (0.11-0.59) K/uL Eos # (Auto) 0.09 (0-0.5) K/uL Baso # (Auto) 0.03 (0-0.2) K/uL Sodium 141 (136-145) mmol/L Potassium 3.6 (3.5-5.1) mmol/L Chloride 107 (98-107) mmol/L Carbon Dioxide 26 (21-32) mmol/L Anion Gap 8.0 (3-11) BUN 26 H (7-18) mg/dl Creatinine 0.88 (0.6-1.4) mg/dl Est Cr Clr Drug Dosing 84.2 ml/min Est GFR ( Amer) 112.9 Est GFR (Non-Af Amer) 97.4 BUN/Creatinine Ratio 30.0 H (10-20) Glucose 87 (70-99) mg/dl Calcium 8.8 (8.5-10.1) mg/dl Diagnostic Findings XR KUB/Abdomen 1 view CLINICAL HISTORY: 53 years-old Male presenting with SBO. TECHNIQUE: Single supine view of the abdomen was obtained. COMPARISON: 01/23/2019. FINDINGS: Persistent gaseous distention of small bowel loops with an apparent diameter of 5 cm though this is likely affected by magnification. Nasogastric tube terminates in the gastric fundus with sidehole also contained within the gastric lumen. The small bowel loops have a stacked appearance. Stool noted in the right colon. Paucity of bowel gas within the remainder of the colon. No gross pneumoperitoneum. Allowing for bowel gas and stool, no calcifications to suggest nephrolithiasis. Osseous structures normal. Lung bases clear. IMPRESSION: 1. Findings suggest persistent small bowel obstruction. This does not appear improved from prior. 2. Nasogastric tube within the gastric fundus; correlate for desired positioning.
[2019-01-24] MEDS ORDERED: BUPIVACAINE 0.5 % 5 MG/1 ML MPF 30ML VIAL ONE (10:19)
[2019-01-24] MEDS ORDERED: LIDOCAINE HCL 1% 20 ML VIAL ONE (10:19)
[2019-01-24] MEDS ORDERED: BACITRACIN OINT 15 GM TUBE ONE (10:20)
[2019-01-24] MEDS ORDERED: SUCCINYLCHOLINE CHLORIDE 20 MG/ML 10 ML VIAL ONE (10:30)
[2019-01-24] MEDS ORDERED: GLYCOPYRROLATE 0.2 MG/ML VIAL ONE (10:30)
[2019-01-24] MEDS ORDERED: DEXAMETHASONE SOD INJ 4 MG/ML VIAL ONE (10:30)
[2019-01-24] MEDS ORDERED: PROPOFOL IV EMULSION 10 MG/ML 20 ML VIAL IV ONE (10:30)
[2019-01-24] MEDS ORDERED: ePHEDrine sulfate 50 MG/ML AMP ONE (10:30)
[2019-01-24] MEDS ORDERED: ONDANSETRON INJ 2 MG/ML 2 ML VIAL ONE (10:30)
[2019-01-24] MEDS ORDERED: NEOSTIGMINE METHYLSULFATE 5 MG/5 ML SYR ONE (10:30)
[2019-01-24] MEDS ORDERED: LIDOCAINE HCL 2% 2 ML VIAL/AMP(20MG/ML) INFIL ONE (10:30)
[2019-01-24] MEDS ORDERED: PHENYLEPHRINE HCL 10 MG/ML VIAL ONE (10:30)
[2019-01-24] MEDS ORDERED: fentaNYL citrate 100 MCG/2 ML VIAL ONE (10:31)
[2019-01-24] MEDS ORDERED: MIDAZOLAM HCL 1 MG/ML 2ML VIAL ONE (10:31)
--- NOTE | 2019-01-24 10:45 | History & Physical Bridge Note ---
Date of Service January 24, 2019 History & Physical Bridge Note I have examined the patient, reviewed the History & Physical and in the interval since the performance of the History & Physical I have noted the following changes of clinical significance: no changes noted Supervising Physician Co-Signing Physician Notes Resident Physician Supervision Note: I independently interviewed and examined the patient and verified the connors histor y and physical, reviewed labs and image studies, discussed the case with the resident Dr. Engel and agree with the findings and care plan.
[2019-01-24] MEDS ORDERED: CLINDAMYCIN 600 MG/54 ML D5W IV ONE (10:47)
--- NOTE | 2019-01-24 10:53 | Anesthesiology Consultation ---
Date of Service January 24, 2019 Assessment & Plan (1) Encounter for pre-operative examination: Chart Review Chart Review: Acceptable Risk for Surgery and Patient NOT seen in Pre Admission Testing Consults Requested none ASA [id number] Proposed Anesthesia Anesthesia Type: General History Surgery Operation Date: 01/24/19 09:05 Proposed Procedures p Exploratory Laparotomy, Possible Bowel Resection - Shakila Zamorano MD Height/Weight Height: 5 ft 11 in Weight: 62 kg Allergies Allergy/AdvReac Type Severity Reaction Status Date / Time Penicillins Allergy Unknown Unknown Verified 01/21/19 22:23 Medications Home Medications Medication Instructions Recorded Confirmed Last Taken No Known Home Medications 01/21/19 01/21/19 Unknown Active Medications Generic Name Dose Route Start Last Admin Trade Name Freq PRN Reason Stop Dose Admin Lactated Ringer's 1,000 mls @ 125 mls/hr 01/22/19 01:42 01/24/19 07:30 Lr IV 02/21/19 01:41 125 mls/hr .Q8H BETTY Administration Famotidine 20 mg/ Syringe 5 mls @ 2.5 mls/min 01/22/19 11:30 01/24/19 08:07 IV 02/21/19 11:29 2.5 mls/min DAILY BETTY Administration Ioversol 89 ml 01/21/19 22:57 01/21/19 22:58 Optiray 320 100ml IV 01/25/19 22:56 89 ml ONCE PRN Administration Interaction Checking Ketorolac Tromethamine 30 mg 01/22/19 01:42 01/23/19 20:54 Toradol IV 01/27/19 01:41 30 mg Q6H PRN Administration Pain Ondansetron HCl 4 mg 01/22/19 01:42 01/23/19 19:00 Zofran IV 02/21/19 01:41 4 mg Q6H PRN Administration Nausea NPO Date Last Intake of Fluids: 01/21/19 Time Last Intake of Fluids: 19:00 Date Last Intake of Solids: 01/21/19 Time Last Intake of Solids: 19:00 Past Medical History Medical History Small bowel obstruction (Acute) Bowel obstruction (Resolved) Hyperlipidemia (Acute) Nonvenomous insect bite of multiple sites (Acute) Neurogenic bladder disorder (Chronic) Past Surgical History Surgical History Hx of appendectomy (Resolved) Social History Smoking Status: Never smoker Do You Dip or Chew Tobacco: No Hx Alcohol Use: Yes Alcohol type: wine alcohol intake frequency: 0-2 drinks per day Alcohol Intake Frequency Comment: 5 ounces of wine at night. Hx Substance Use: No substance use type: does not use Physical Exam Vital Signs Last Vital Signs Temp 37 C 01/24/19 10:41 Pulse 84 01/24/19 10:41 Resp 16 01/24/19 10:41 BP 112/70 01/24/19 10:41 Pulse Ox 100 01/24/19 10:41 Testing Laboratory Results 01/24/19 07:13 01/24/19 07:13 PT 10.3 Seconds (9.0-12.0) 01/21/19 21:59 INR 1.0 (0.9-1.1) 01/21/19 21:59 Urine Color Yellow 01/21/19 23:55 Urine Appearance Clear (Clear) 01/21/19 23:55 Urine pH 6.5 (4.5-7.5) 01/21/19 23:55 Ur Specific [place] > 1.045 (1.000-1.030) H 01/21/19 23:55 Urine Protein Negative (Negative) 01/21/19 23:55 Urine Glucose (UA) Negative (Negative) 01/21/19 23:55 Urine Ketones 1+ (Negative) H 01/21/19 23:55 Urine Nitrite Positive (Negative) A 01/21/19 23:55 Ur Leukocyte Esterase Negative (Negative) 01/21/19 23:55 Urine WBC (Auto) 1-5 /hpf (0-5) 01/21/19 23:55 Urine RBC (Auto) 0-4 /hpf (0-4) 01/21/19 23:55 U Hyaline Cast (Auto) 1-5 /lpf (0-5) 01/21/19 23:55 U Epithel Cells (Auto) 10-20 /lpf (0-5) H 01/21/19 23:55 Urine Bacteria (Auto) 1+ (Negative) H 01/21/19 23:55 01/21/19 23:55 Urine Culture - Preliminary Urine,Straight Cath Gram positive cocci 01/21/19 21:59 Aerobic Blood Culture - Preliminary Blood No growth in Aerobic bottle after 48 hours. Anaerobic Blood Culture - Preliminary No growth in Anaerobic bottle after 48 hours. 01/21/19 21:59 Aerobic Blood Culture - Preliminary Blood No growth in Aerobic bottle after 48 hours. Anaerobic Blood Culture - Preliminary No growth in Anaerobic bottle after 48 hours.
[2019-01-24] MEDS ORDERED: ePHEDrine sulfate 50 MG/ML AMP IV PRN (10:58)
[2019-01-24] MEDS ORDERED: HYDROmorphone INJ 2 MG/ML SYR/VIAL IV PRN (10:58)
[2019-01-24] MEDS ORDERED: ATROPINE SULFATE 0.1 MG/ML 10ML SYR IV PRN (10:58)
[2019-01-24] MEDS ORDERED: ACETAMINOPHEN 1000 MG/100 ML IV IV ONE (12:16)
[2019-01-24] MEDS ORDERED: ALBUMIN HUMAN 5% 12.5 GM/250 ML VIAL IV ONE (12:16)
--- NOTE | 2019-01-24 12:48 | Post Operative Brief Note ---
Immediate Post Op Note v1 Date of Surgery January 24, 2019 Pre & Post Diagnosis Operation Date: 01/24/19 09:05 Pre-Op Diagnosis: Small Bowel Obstruction Post-Op Diagnosis: Small Bowel Obstruction Procedure Operation Date: 01/24/19 09:05 Actual Procedures p Exploratory Laparotomy, Lysis of Adhesions - Shakila Zamorano MD Surgeon Shakila Zamorano MD Bingo Usher TIMUR [place] Estimated Blood Loss 20 Findings Consistent with Post-Op Diagnosis adhesion cause SBO, free fluid abdominal cavity Fluids 2700ml Specimens none Drains Self Catheter (16F/5cc self placed after induction by Mayi Solorzano RN, without difficulty and with return of clear, yellow urine. placed to gravity drain with urimeter and monitored by anesthesia for duration of procedure. ) Anesthesia Type General Complications none Disposition Accompanied Patient To Recovery: Yes Disposition: Recovery Room Overlapping Procedure I was immediately available: during the entire case.
[2019-01-24] MEDS ORDERED: HYDROmorphone INJ 0.5 MG/0.5 ML SYR IV PRN (13:00)
--- NOTE | 2019-01-24 14:37 | Operative Report ---
DATE OF OPERATION: 01/24/2019 PREOPERATIVE DIAGNOSIS: Small-bowel obstruction. POSTOPERATIVE DIAGNOSIS: Small-bowel obstruction. OPERATION: Exploratory laparotomy, lysis of adhesion. SURGEON: Shakila Zamorano MD. ANESTHESIA: General. FORM GRADER OPERATOR: Sena Contreras PA-C. FINDINGS: Small-bowel obstruction caused by the retention, free fluid inside the abdomen cleared about 500 mL. COMPLICATIONS: None. INDICATIONS FOR THE PROCEDURE: This is a 53-year-old gentleman who was admitted to hospital for small-bowel obstruction. The patient had 2 days of conservative treatment, was not getting better, and repeat KUB seems small-bowel obstruction did not improve, so I recommended to take the patient to the OR to do exploratory laparotomy, possible bowel resection. I did talk to the patient about the benefit and risk, alternate procedure. I indicated the risks may include but not limited such as bleeding, infection, small-bowel obstruction, recurrence, incisional hernia, injury to the bowel, even . The patient understands. He signed informed consent and I answered all questions. DETAILS OF PROCEDURE: We brought the patient to the OR, put the patient in the supine position. The patient received SCD on bilateral legs to prevent DVT. Also, patient received 600 mg clindamycin IV for prophylactic antibiotic and the patient received general anesthesia without difficulty. Also, patient received Rendon catheter insertion. The abdomen was appropriately draped in routine sterile fashion. After timeout, I used the midline old incision and removed the old incision scar. The incision length was about 10 cm then we opened the fascia and opened peritoneum under direct vision getting into abdomen without difficulty and there was a lot of scar, we took down all of the scar and then we found that there was one adhesion that caused the small bowel obstruction. Once we released this adhesion the small bowel to resolve obstruction and all the fluid and gas passed the small bowel. No problem and then also we found the patient had lot of free fluid inside the abdomen. We suctioned out about 500 mL and some small bowel edema; however, the small bowel blood circulation was good. The proximal small bowel dilation was about 5 cm. Once we released obstruction of the small bowel, we followed all of the small bowel passes the distal small bowel. Hemostasis obtained, now closed the umbilical fascial layer by using #1 PDS continuous running, closed subcutaneous layer by using 2-0 Vicryl continuous running, closed skin by using staple. Then we put the dressing on. The patient tolerated the procedure well. All instrument, needle and sponge count were correct x2 at the end of case. The patient transferred to recovery room in stable condition and after procedure, I did talk to the patient's about the OR finding and procedure we did, she understands. I attest to the content of the Intraoperative Record and any orders documented therein. Any exceptions are noted below. SAMI
--- NOTE | 2019-01-24 15:54 | Anesthesiology Progress Note ---
Date of Service January 24, 2019 Anesthesia Post Procedure Vital Signs Vital Signs: Temp Pulse Pulse Resp BP Pulse Ox 01/24/19 14:57 36.4 C L 59 L 18 117/68 96 01/24/19 14:34 36.3 C L 59 L 18 113/67 100 01/24/19 14:00 36.3 C L 59 L 15 117/70 100 01/24/19 13:45 37.0 C 60 12 113/74 99 01/24/19 13:35 69 13 114/63 97 01/24/19 13:25 76 12 118/68 100 01/24/19 13:15 74 12 114/62 100 01/24/19 13:09 36.9 C 82 13 119/67 100 01/24/19 10:41 37 C 84 16 112/70 100 01/24/19 07:08 36.5 C 49 L 20 135/74 98 01/23/19 23:47 36.8 C 51 L 16 133/76 99 Pain Intensity Abdomen: Pain Intensity: 1 Transfer of Care Handoff Completed per policy Notes Mental Status: alert / awake / arousable Patient Amnestic to Procedure: Yes Nausea / Vomiting: adequately controlled Pain: adequately controlled Airway Patency, RR, SpO2: stable & adequate BP & HR: stable & adequate Hydration State: stable & adequate Anesthetic Complications: no major complications apparent and Pt Satisfied with anesthetic care
[2019-01-24] MEDS: CIPROFLOXACIN 400 MG/200 ML BAG IV SCH (18:18)
[2019-01-24] MEDS: ACETAMINOPHEN 1,000 MG/100 ML VIAL IV PRN (21:11)
[2019-01-25] MEDS: LACTATED RINGER'S 1,000 ML IV SCH ×2 (04:18→08:33)
[2019-01-25] MEDS: CIPROFLOXACIN 400 MG/200 ML BAG IV SCH ×2 (05:47→17:37)
[2019-01-25] MEDS ORDERED: CLINDAMYCIN 600 MG/54 ML BAG IV SCH (06:00)
[2019-01-25] MEDS: ACETAMINOPHEN 1,000 MG/100 ML VIAL IV PRN ×2 (07:30→23:58)
--- NOTE | 2019-01-25 07:57 | Anesthesiology Progress Note ---
Date of Service January 25, 2019 Anesthesia Post Procedure Vital Signs Vital Signs: Temp Pulse Pulse Resp BP Pulse Ox 01/25/19 03:56 36.6 C 49 L 16 110/61 99 01/24/19 23:40 36.6 C 49 L 16 107/56 L 98 01/24/19 19:07 36.6 C 64 18 115/71 98 01/24/19 16:59 36.8 C 60 18 114/62 96 01/24/19 15:57 36.7 C 60 18 124/65 97 01/24/19 14:57 36.4 C L 59 L 18 117/68 96 01/24/19 14:34 36.3 C L 59 L 18 113/67 100 01/24/19 14:00 36.3 C L 59 L 15 117/70 100 01/24/19 13:45 37.0 C 60 12 113/74 99 01/24/19 13:35 69 13 114/63 97 01/24/19 13:25 76 12 118/68 100 01/24/19 13:15 74 12 114/62 100 01/24/19 13:09 36.9 C 82 13 119/67 100 01/24/19 10:41 37 C 84 16 112/70 100 Pain Intensity Abdomen: Pain Intensity: 2 Notes Mental Status: alert / awake / arousable and participated in evaluation Patient Amnestic to Procedure: Yes Nausea / Vomiting: adequately controlled Pain: adequately controlled Airway Patency, RR, SpO2: stable & adequate BP & HR: stable & adequate Hydration State: stable & adequate Anesthetic Complications: no major complications apparent and Pt Satisfied with anesthetic care
[2019-01-25 08:22] LABS: Basophils # (auto) 0.02 K/uL (0-0.2); Basophils % (auto) 0.5 %; Eosinophils # (auto) 0.04 K/uL (0-0.5); Hematocrit (blood only) 35.7 % (42-52); Hemoglobin 12.2 g/dL (14.0-18.0); Immature Granulocytes # (auto) 0.01 K/uL (0.00-0.02); Immature Granulocytes % (auto) 0.3 %; Lymphocytes % (auto) 22.7 %; Mean Corpuscular Hgb Conc 34.2 g/dL (32-36); Mean Corpuscular Volume 96.5 fL (80-100); Mean Platelet Volume 9.8 fL (7.4-10.4); Monocytes # (auto) 0.56 K/uL (0.11-0.59); Monocytes % (auto) 14.1 %; Neutrophils # (auto) 2.43 K/uL (1.4-6.5); Neutrophils % (auto) 61.4 %; Platelet Count 119 K/uL (130-400); RDW Standard Deviation 45.7 fL (36.4-46.3); White Blood Count 3.96 K/uL (4.8-10.8)
[2019-01-25] MEDS: FAMOTIDINE 20 MG in SYRINGE 3 ML IV SCH (08:32)
[2019-01-25 08:48] LABS: Albumin Level 2.6 gm/dl (3.4-5.0); BUN Creatinine Ratio 24.6 (10-20); Calcium 8.2 mg/dl (8.5-10.1); Creatinine Clr Calc Pharmacy 92.6 ml/min; Est GFR (African American) 117.4; Est GFR (Non-African American) 101.3
[2019-01-25 08:51] LABS: Albumin Globulin Ratio 0.9 (0.9-2); Bilirubin,Total 1.1 mg/dl (0.2-1); Globulin 2.9 gm/dl (2.5-4.0); Total Protein 5.5 gm/dl (6.4-8.2)
--- NOTE | 2019-01-25 09:28 | Family Medicine Progress Note ---
Date of Service January 25, 2019 Assessment & Plan (1) Small bowel obstruction: 53 yo M PMHx appendectomy removal at age 6 months with multiple SBO in the past here for SBO s/p ex-lap post op day 1 with improvement of nausea from yesterday, still constipated and obstipated. SBO - exploratory laparotomy post op day 1. Doing well, no flatulence or BMs overnight but no nausea or vomiting. Has been ambulating frequently and has minimal pain (2/10) - NG tube with minimal drainage post surgery so have D/C'ed - Have advanced to clears and will monitor for tolerance. - Dulcolax and Miralax PO - Have changed IV fluids to D5 1/2NSS with 20 KCl 70mL/hr - Zofran PRN nausea, Tylenol and Dilaudid PRN pain. Neurogenic bladder - pt self-catheterizes and has proper supplies for this - no dysuria or hematuria, Cr normal. - Pt had UCx which grew G+ cocci, will await finalized report however given absence of symptoms this is likely to be asymptomatic bacteruria possibly due to his self-cathing. Dispo: Med/Surg DVT PPx: SCDs and encourage ambulation FEN: NPO, Fluids D5 1/2NSS with 20 KCl @ 75mL/hr, Electrolytes normal Code Status: FULL CODE (2) Neurogenic bladder disorder: Supervising Physician Co-Signing Physician Notes Resident Physician Supervision Note: I independently interviewed and examined the patient and verified the connors history and physical, reviewed labs and image studies, discussed the case with the resident Dr. Engel and agree with the findings and care plan. Subjective Pt is post op day 1 from exploratory laparotomy with lysis of adhesions and removal of 500cc fluid from abdominal cavity. Was started on cipro for 48 hours post-op. Reports doing well today, no nausea or vomiting, some mild pain at his incision site. Has not had any BMs or flatulence since surgery, and was told to walk around the unit to help move his bowels, so he has been going for walks a lot. He has been using his incentive spirometer post surgery. Review of Systems Review of Systems: As per HPI Constitutional: no fever and no chills Respiratory: no cough, no chest congestion, no dyspnea and no wheezing reports using incentive spirometer Cardiovascular: no chest pain, no palpitations and no edema Gastrointestinal: + abdominal pain (at surgical site, mild 2/10 pain); no bloating, no nausea and no vomiting No BM as of yet post surgery, no flatulence. Genitourinary: no dysuria, no urinary frequency and no hematuria Neurologic: AAOx3 Physical Exam Constitutional: WD/WN, vitals as above ENMT: external ear and nose normal, oropharynx normal Respiratory: normal respiratory effort, lungs clear to auscultation Cardiovascular: RRR, no murmur, no edema Gastrointestinal (Abdomen): Inspection/Auscultation: + abdominal surgical incision (10cm incision with surgical dressing in place. No drainage, no redness.); + abnormal bowel sounds (minimal bowel sounds) Percussion/Palpation: abdomen soft; no guarding and abdomen not rigid Skin: no rashes, warm and dry Psychiatric: A+Ox3, euthymic affect Results & Data Vital Signs (Past 12 Hours) Vital Signs Temp Pulse Pulse Resp BP Pulse Ox 01/25/19 08:00 36.5 C 64 18 128/72 95 01/25/19 03:56 36.6 C 49 L 16 110/61 99 01/24/19 23:40 36.6 C 49 L 16 107/56 L 98 PG Care Time/CCT Total # of Minutes Spent Total Time Spent with Patient: Total time spent is greater than 50% in coordination of care (as documented) at patient's floor/unit and/or counseling patient: Resident Activity Tracking Resident Involvement: Resident Care Provided Care Provided: Adult Hospital Medicine
[2019-01-25] MEDS ORDERED: ACETAMINOPHEN 325 MG TAB PO PRN (11:00)
[2019-01-25] MEDS ORDERED: TRAMADOL HCL 50 MG TABLET PO PRN (11:00)
[2019-01-25] MEDS ORDERED: OXYCODONE/ACETAMINOPHEN 5mg/325mg TAB PO PRN (11:00)
[2019-01-25] MEDS ORDERED: bisacodyL 5 MG TABEC PO ONE (11:01)
[2019-01-25] MEDS ORDERED: POLYETHYLENE (MIRALAX) 17 GM PACK PO ONE (11:15)
[2019-01-25] MEDS ORDERED: D5W AND 1/2NSS + 20MEQ KCL 20 MEQ/1,000 ML BAG IV SCH (11:15)
--- NOTE | 2019-01-25 11:49 | Surgery Progress Note ---
Date of Service January 25, 2019 Assessment & Plan (1) Small bowel obstruction: POD # 1 s/p ex lap lysis of adhesions -vitals stable, afebrile - post op pain minimal, controlled - no return of bowel function yet - no nausea or vomiting - NGT with minimal output since OR, 100 cc Plan: Discontinue NGT Start clear liquids, advised pt to go slow, stop if feels full/bloated will give Dulcolax PO and Miralax dose to help flush out colon (formed stool in colon on CT scan and felt during operation) continue ambulation continue IV fluids, decrease to 70 mls/hr, change to d5w 1/2 NS with 20 kcl PO Pain medications prn SCDs for DVT prophylaxis Continue IV Cipro for postop empiric abx , await final urine culture results (pt asymptomatic, likely bacteruria from self cathing) Dr. Zamorano has seen and examined pt, agrees with above. Subjective nausea and bloating improved today, "I do not feel today" still no gas or bowel movement yet ambulating hallway little output of NGT since surgery Physical Exam Constitutional: WD/WN, vitals as above no acute distress sitting in chair at bedside upon entering room Respiratory: normal respiratory effort; no respiratory distress Gastrointestinal (Abdomen): Inspection/Auscultation: abdomen not distended Percussion/Palpation: + abdomen tender (mild at incision site) and abdomen soft; no guarding and abdomen not rigid NGT with about 100 of dark green/brown output Skin: no rashes, warm and dry Psychiatric: A+Ox3, euthymic affect Results & Data Vital Signs (Past 12 Hours) Vital Signs Temp Pulse Pulse Resp BP Pulse Ox 01/25/19 08:00 36.5 C 64 18 128/72 95 01/25/19 03:56 36.6 C 49 L 16 110/61 99
[2019-01-26] MEDS: CIPROFLOXACIN 400 MG/200 ML BAG IV SCH (05:59)
[2019-01-26 07:57] LABS: Basophils # (auto) 0.02 K/uL (0-0.2); Basophils % (auto) 0.6 %; Eosinophils # (auto) 0.13 K/uL (0-0.5); Eosinophils % (auto) 3.9 %; Hematocrit (blood only) 36.5 % (42-52); Hemoglobin 12.5 g/dL (14.0-18.0); Immature Granulocytes # (auto) 0.01 K/uL (0.00-0.02); Immature Granulocytes % (auto) 0.3 %; Lymphocytes # (auto) 0.68 K/uL (1.2-3.4); Lymphocytes % (auto) 20.5 %; Mean Corpuscular Hemoglobin 33.4 pg (25-34); Mean Corpuscular Hgb Conc 34.2 g/dL (32-36); Mean Corpuscular Volume 97.6 fL (80-100); Mean Platelet Volume 10.2 fL (7.4-10.4); Monocytes # (auto) 0.31 K/uL (0.11-0.59); Monocytes % (auto) 9.4 %; Neutrophils # (auto) 2.16 K/uL (1.4-6.5); Neutrophils % (auto) 65.3 %; Platelet Count 132 K/uL (130-400); RDW Coefficient of Variation 13.1 % (11.5-14.5); RDW Standard Deviation 46.5 fL (36.4-46.3); Red Blood Count 3.74 M/uL (4.7-6.1); White Blood Count 3.31 K/uL (4.8-10.8)
[2019-01-26] MEDS: FAMOTIDINE 20 MG in SYRINGE 3 ML IV SCH (08:07)
[2019-01-26 08:32] LABS: BUN Creatinine Ratio 12.5 (10-20); Calcium 8.4 mg/dl (8.5-10.1); Creatinine Clr Calc Pharmacy 85.1 ml/min; Est GFR (African American) 113.4; Est GFR (Non-African American) 97.8; Potassium 3.8 mmol/L (3.5-5.1)
[2019-01-26] MEDS ORDERED: POLYETHYLENE (MIRALAX) 17 GM PACK PO STA (09:00)
--- NOTE | 2019-01-26 09:00 | Surgery Progress Note ---
Date of Service January 26, 2019 Assessment & Plan (1) Small bowel obstruction: POD # 2 s/p ex lap lysis of adhesions -vitals stable, afebrile - post op pain minimal, controlled - no return of bowel function yet - no nausea or vomiting, tolerated sips of clears Plan: Continue clear liquids another dose of Miralax (formed stool in colon on CT scan and felt during operation) continue ambulation PO Pain medications prn SCDs for DVT prophylaxis Continue IV Cipro for postop empiric abx , await final urine culture results (pt asymptomatic, likely bacteruria from self cathing) Change surgical dressing tomorrow Dr. Zamorano has seen and examined patient, agrees with above. Subjective feeling good this morning no flatus or bowel movement yet but feels things moving around in belly walking hallways tolerated sips of clears yesterday, took it very slow, no nausea or bloating no vomiting Physical Exam Constitutional: WD/WN, vitals as above no acute distress and not ill appearing Respiratory: no respiratory distress Gastrointestinal (Abdomen): Inspection/Auscultation: abdomen normal to inspection and normal bowel sounds; abdomen not distended Percussion/Palpation: + abdomen tender (mild at incision site) and abdomen soft; no guarding and abdomen not rigid Skin: no rashes, warm and dry + incision (covered with dry dressing, no spotting) Psychiatric: A+Ox3, euthymic affect Results & Data Vital Signs (Past 12 Hours) Vital Signs Temp Pulse Resp BP Pulse Ox 01/26/19 07:37 36.6 C 51 L 16 110/65 98 01/25/19 23:53 37.3 C 51 L 16 110/46 L 99
--- NOTE | 2019-01-26 09:46 | Family Medicine Progress Note ---
Date of Service January 26, 2019 Assessment & Plan (1) Small bowel obstruction: 53 yo M PMHx appendectomy removal at age 6 months with multiple SBO in the past here for SBO s/p ex-lap post op day 2 and overall feeling well with continued obstipation and constipation but feeling well on clear liquid diet. SBO - exploratory laparotomy post op day 2. Doing well, no flatulence or BMs overnight but no nausea or vomiting. Has been ambulating frequently and has minimal pain. - Bowels have not moved yet, per surgery rec's with continue clears and will monitor for tolerance. - Dulcolax and Miralax PO - Zofran PRN nausea, Tylenol and Dilaudid PRN pain. - Will complete post-op Cipro today. Neurogenic bladder - pt self-catheterizes and has proper supplies for this - no dysuria or hematuria, Cr normal. - Pt had UCx which grew >100,000 G+ cocci, will await finalized report however given absence of symptoms will not treat at this time. Dispo: Med/Surg DVT PPx: SCDs and encourage ambulation FEN: Clear liquid diet, Fluids PO, Electrolytes normal Code Status: FULL CODE (2) Neurogenic bladder disorder: Supervising Physician Co-Signing Physician Notes Resident Physician Supervision Note: I independently interviewed and examined the patient and verified the connors history and physical, reviewed labs and image studies, discussed the case with the resident Dr. Engel and agree with the findings and care plan. Subjective Pt with no acute events overnight, continues not to have nausea or vomiting. Has not yet ad a BM and no flatulence. Has been doing a lot of walking around the [place] and has minimal tenderness which he has only used Tylenol for. No fevers or chills, no shortness of breath or chest pain. Tolerated clear liquids this morning without nausea or vomiting. Review of Systems Constitutional: no fever, no chills and no malaise Respiratory: no cough and no dyspnea Cardiovascular: no chest pain, no palpitations and no edema Gastrointestinal: + abdominal pain (minimal at incision site.) and + constipation; no nausea and no vomiting no flatulence as of yet but "feels like things are moving down there". Physical Exam Constitutional: WD/WN, vitals as above not ill appearing Respiratory: normal respiratory effort, lungs clear to auscultation Cardiovascular: RRR, no murmur, no edema Gastrointestinal (Abdomen): Inspection/Auscultation: normal bowel sounds; abdomen not distended Percussion/Palpation: + abdomen tender (mild tenderness at surgical site otherwise nontender.) and abdomen soft Skin: no rashes, warm and dry 10 cm vertical abdominal incision covered with surgical dressing. No spotting through the dressing. No streaking of the skin near the incision. Psychiatric: A+Ox3, euthymic affect Results & Data Vital Signs (Past 12 Hours) Vital Signs Temp Pulse Resp BP Pulse Ox 01/26/19 07:37 36.6 C 51 L 16 110/65 98 01/25/19 23:53 37.3 C 51 L 16 110/46 L 99 PG Care Time/CCT Total # of Minutes Spent Total Time Spent with Patient: Total time spent is greater than 50% in coordination of care (as documented) at patient's floor/unit and/or counseling patient: Resident Activity Tracking Resident Involvement: Resident Care Provided Care Provided: Adult Hospital Medicine
[2019-01-27 06:17] LABS: Basophils # (auto) 0.03 K/uL (0-0.2); Basophils % (auto) 0.8 %; Eosinophils # (auto) 0.18 K/uL (0-0.5); Eosinophils % (auto) 4.8 %; Hemoglobin 12.9 g/dL (14.0-18.0); Lymphocytes # (auto) 0.89 K/uL (1.2-3.4); Lymphocytes % (auto) 23.5 %; Mean Corpuscular Hgb Conc 33.9 g/dL (32-36); Mean Corpuscular Volume 97.2 fL (80-100); Monocytes % (auto) 7.9 %; Neutrophils # (auto) 2.38 K/uL (1.4-6.5); Platelet Count 136 K/uL (130-400); RDW Standard Deviation 46.2 fL (36.4-46.3); Red Blood Count 3.91 M/uL (4.7-6.1); White Blood Count 3.78 K/uL (4.8-10.8)
[2019-01-27 06:43] LABS: BUN Creatinine Ratio 11.2 (10-20); Calcium 8.5 mg/dl (8.5-10.1); Creatinine Clr Calc Pharmacy 102.9 ml/min; Est GFR (African American) 122.6; Est GFR (Non-African American) 105.8; Potassium 3.6 mmol/L (3.5-5.1)
--- NOTE | 2019-01-27 09:39 | Surgery Progress Note ---
Date of Service January 27, 2019 Assessment & Plan (1) Small bowel obstruction: Slowly improving s/p lysis of adhesions. Will advance to full liquid diet today. Continue ambulation. SCD's for DVT prophylaxis. Off antibiotics yesterday - labs stable. Subjective doing well. Ambulating in hallways. pain well managed. No nausea. Passing some flatus. No bowel movement yet. Feeling hungry for more solid food. Review of Systems Review of Systems: All systems reviewed & are unremarkable except as noted in HPI & below Physical Exam Constitutional: WD/WN, vitals as above Respiratory: normal respiratory effort, lungs clear to auscultation Cardiovascular: RRR, no murmur, no edema Gastrointestinal (Abdomen): Inspection/Auscultation: + abdomen distended (mild) and normal bowel sounds Percussion/Palpation: abdomen soft incision clean and intact Neurologic: moves all extremities Psychiatric: A+Ox3, euthymic affect Results & Data Vital Signs (Past 12 Hours) Vital Signs Temp Pulse Pulse Resp BP Pulse Ox 01/27/19 07:34 36.4 C L 51 L 16 118/74 100 01/26/19 23:10 37.1 C 57 L 17 124/72 97
--- NOTE | 2019-01-27 15:17 | Family Medicine Progress Note ---
Date of Service January 27, 2019 Assessment & Plan (1) Small bowel obstruction: 53 yo M PMHx appendectomy removal at age 6 months with multiple SBO in the past here for SBO s/p ex-lap post op day 2 and overall feeling well with continued obstipation and constipation but feeling well on low fiber diet. SBO - exploratory laparotomy post op day 3. Doing well, flatulence no BM, no nausea or vomiting. Has been ambulating frequently and has minimal pain. - Surgery would like for Mr. Kirby to have a BM prior to discharge, anticipating discharge tomorrow - Dulcolax and Miralax PO - Zofran PRN nausea, Tylenol and Dilaudid PRN pain. - Completed post-op Cipro yesterday Neurogenic bladder - pt self-catheterizes and has proper supplies for this - no dysuria or hematuria, Cr normal. - Pt had UCx which grew >100,000 G+ cocci, will await finalized report however given absence of signs or symptoms of an infection will not treat unless this changes Left arm inflammation likely secondary to infiltrated IV site - erythema not tracking, no LAD - afebrile, normotensive - will continue to monitor for SXS of infection Dispo: Med/Surg DVT PPx: SCDs and encourage ambulation FEN: Clear liquid diet, Fluids PO, Electrolytes normal Code Status: FULL CODE (2) Neurogenic bladder disorder: - pt self-catheterizes and has proper supplies for this. - no dysuria or hematuria, Cr normal. Dispo: Med/Surg DVT PPx: SCDs and encourage ambulation FEN: NPO, Fluids LR 125mL/hr, Electrolytes normal Code Status: FULL CODE Supervising Physician Co-Signing Physician Notes I personally examined the patient and verified all connors points of history and exam, discussed case, and agree with decision making with Dr Abel. Feeling better. Moving flatus. Tolerated full liquid diet well. Would like to try real food. Discussed advancing to low fiber. Left arm IV site hurts, but not spreading. Vitals noted, in general he is awake and alert pleasant no distress. HEENT normal cephalic atraumatic mucous members moist. Breathing unlabored no accessory muscle use good effort. Skin shows no rashes except for on his left arm flexor surface, which has a 8 cm area of dull redness consistent with an infiltrated IV site, no crepitus no significant tenderness no spreading. No pallor or icterus. SBOimproving, now status post lysis of adhesions. Advance to low fiber diet, work towards home. Seems to be doing well otherwise. Infiltrated IV sitewarm compresses, reassurance. DVT prophylaxisambulation Subjective Mr. Kirby is doing well this morning. He mentioned that he did not have a bowel movement but has passed flatus. Currently no pain. He mentioned that overnight he had a swollen area in his left forearm where his IV that wasn't flushing was removed. The area is tender and patient states that it has not changed in size or travelled up his arm since it developed overnight. Patient also notes that he has swelling in both legs. Review of Systems Constitutional: no fever and no chills Respiratory: no cough no shortness of breath Cardiovascular: no chest pain and no palpitations Gastrointestinal: no abdominal pain, no nausea and no vomiting Genitourinary: no urinary frequency and no urinary hesitancy Physical Exam Eyes: PERRL, conjunctivae normal, anicteric sclerae Respiratory: normal respiratory effort, lungs clear to auscultation Cardiovascular: RRR, no murmur, no edema Gastrointestinal (Abdomen): decreased bowel sounds this AM, at 2 PM normal bowel sounds X4, soft, nTTP, surgical bandage c/d/i Musculoskeletal: Gait: normal gait Skin: Left forearm anterior aspect with 10 cm erythematous, slightly warm area proximal of IV site, no axillary LAD, no cords, not evolving over last 6 hours Results & Data Vital Signs (Past 12 Hours) Vital Signs Temp Pulse Resp BP Pulse Ox 01/27/19 07:34 36.4 C L 51 L 16 118/74 100 PG Care Time/CCT Total # of Minutes Spent Total Time Spent with Patient: Total time spent is greater than 50% in coordination of care (as documented) at patient's floor/unit and/or counseling patient:
[2019-01-28 08:00] VITALS: BP 131/76; TEMP 97.9; O2SAT 99
--- NOTE | 2019-01-28 10:36 | Surgery Progress Note ---
Date of Service January 28, 2019 Assessment & Plan (1) Small bowel obstruction: s/p DEON/ expl lap POD#4. Doing well. Stable for discharge home today - d/c instructions reviewed with pt. Subjective Doing well. Had a bowel movement yesterday. Feels well - no concerns re discharge. Physical Exam Constitutional: WD/WN, vitals as above Respiratory: normal respiratory effort, lungs clear to auscultation Cardiovascular: RRR, no murmur, no edema Gastrointestinal (Abdomen): normal bowel sounds, soft, nontender, no hepatosplenomegaly incision clean Neurologic: moves all extremities Psychiatric: A+Ox3, euthymic affect Results & Data Vital Signs (Past 12 Hours) Vital Signs Temp Pulse Resp BP Pulse Ox 01/28/19 07:15 36.6 C 46 L 16 131/76 99 01/27/19 22:51 37.1 C 59 L 16 105/67 97
[2019-01-28 10:39] VITALS: PULSE 57
--- NOTE | 2019-01-28 19:21 | Discharge Summary ---
Date of Service January 28, 2019 Admission HPI Per Admitting Provider 53-year-old male with history of prior SBO and neurogenic bladder (self caths) presents with recurrent lower abdominal pain associated with nausea and vomiting today. Patient had appendectomy at 6 months of age and surgery for SBO in January 2014. Was also admitted in April 2017 for SBO which self resolved. Patient reports developed abdominal pain this evening around 8 PM. Vomited x1, NB NB. Associate with chills and nausea. Had bowel movement this morning which was normal in consistency, brown and nonbloody. Has not passed gas since pain started this evening. Denies any fever, headache, lightheadedness, chest pain, shortness of breath, diarrhea, constipation, dysuria, hematuria. Of note patient has neurogenic bladder and self caths Surgical history as above Allergies: Penicillin Social history: Has about 5 ounces of wine every evening, denies any tobacco use or recreational drug use Admission Exam Per Admitting Provider General: In NAD, reports some pain despite pain medications when evaluated Neuro: A&O x 4 Pulm: CTAB equal breath sounds bilaterally CV: RRR, no m/r/g Abdomen:hyperactive BS, no TTP in all quadrants, non-distended LE: no LE edema, no calf TTP Principal Diagnosis Small bowel obstruction Neurogenic bladder Left arm inflammation Discharge Exam Constitutional well nourished, healthy appearing, well groomed and cooperative; no acute distress Eyes PERRL, conjunctivae normal, anicteric sclerae Respiratory normal respiratory effort, lungs clear to auscultation Cardiovascular RRR, no murmur, no edema Musculoskeletal Gait: normal gait Skin Left arm improving erythematous anterior forearm Discharge Data Allergies Allergy/AdvReac Type Severity Reaction Status Date / Time Penicillins Allergy Unknown Unknown Verified 01/21/19 22:23 Consultations 01/21/19 23:35 ED Decision to Admit Stat 01/22/19 01:42 Consult General Surgery Routine Procedures Performed Operation Date: 01/24/19 09:05 Actual Procedures p Exploratory Laparotomy, Lysis of Adhesions - Shakila Zamorano MD Ordered Studies 01/21/19 21:37 CT abd pelvis IV con only Stat Hospital Course (1) Small bowel obstruction: 53-year-old male with past medical history of appendectomy at age 6 months with multiple SBO in the past here for SBO s/p ex-lap has had resolution of symptoms and had a bowel movement. SBO - exploratory laparotomy. Doing well, flatulence and BM, no nausea or vomiting. Has been ambulating frequently and has minimal pain. - During hospitalization had Dulcolax and Miralax PO, Zofran PRN nausea, Tylenol and Dilaudid PRN pain. - Completed post-op Cipro POD#2 Neurogenic bladder - pt self-catheterizes and has proper supplies for this - no dysuria or hematuria, Cr normal. - Pt had UCx which grew >100,000 G+ cocci, absence of signs or symptoms of an infection, did not treat. Left arm inflammation likely secondary to infiltrated IV site - erythema not tracking, no LAD - afebrile, normotensive - will continue to monitor for SXS of infection - improved over coarse (2) Neurogenic bladder disorder: - pt self-catheterizes and has proper supplies for this. - no dysuria or hematuria, Cr normal. Total Time Total Time Spent Total Time Spent (In Minutes): <30 Discharge Plan Discharge Items Patient Disposition: Home - Self-Care Reason For Visit: FEVER, SHAKES, ABDOMINAL PAIN Discharge Diagnosis: SBO due to adhesions Discharge Goals: Decrease discomfort Activity: Per 'Additional Instructions' section Non-emergency contact: Primary Care Provider Call non-emergency contact if: you have any medication questions Follow-up/Referrals: Gwyn Egan III, MD [Primary Care Provider] - 01/30/19 2:00 pm (Please, follow up at Dr. Egan's office with his associate, Dotty MOREIRA, on TuesdayJanuary 30 at 2:00 pm. *If you need to change this appointment, call the office at [phone].) Diet: Low Fiber Addtl Provider Instructions: Surgical discharge instructions: - No heavy lifting over 10 pounds for 6 weeks - No strenuous activity until cleared by surgeon - No submerging incision underwater for 2 weeks (no bathing, swimming, or hot tubs) - No driving while taking pain medication or until you are pain free - You may shower, allow soap and water to run over incision and pat dry - Surgical seema will be removed in office - May take extra strength Tylenol or Ibuprofen as needed for mild pain - 650 mg of Tylenol every 6 hours as needed - 600 mg of Ibuprofen every 6 hours as needed - Low fiber diet for 1-2 weeks and then regular diet as tolerated - Follow-up in surgical office in 1-2 weeks, please call office at [phone] to make an appointment. Medicine discharge instructions Discussed going on a low fiber diet over the next 2 weeks. After 2 weeks of low fiber diet trial fiber in your diet by including vegetables. If this goes well you can increase the amount of fiber in your diet and ultimately return to a normal diet. Your left arm swelling is likely due to infiltration of the IV as we discussed and should continue to resolve. If you are noticing increased redness that is moving from your arm toward your armpit, and/or you develop fevers call. Prescriptions: No Action No Known Home Medications RF: 0 Stand-Alone Forms: Call Back Authorization, [facility] Discharge Orders: Discharge Order (Routine); Ordered 01/28/19 Ordered By: Sridhar Abel Admission Data Admit Date/Time: 01/22/19 00:29 Attending Provider: Elvin Fatima Admit Provider: Alirio Soto Primary Care Provider: Gwyn Egan III Other Providers: Alirio Soto ; hSakila Zamorano ; Abida Velázquez Service: Surgical Services Other Interventions: Discharge Summary Assessment (RN) Last Done: 01/28/19 10:37 DC Date/Time DO NOT enter until pt leaves facility: 01/28/19 13:17 Supervising Physician Co-Signing Physician Notes I personally examined the patient and verified all connors points of history and exam, discussed case, and agree with decision making with Dr Abel. Feeling better. tolerating diet, would like to go home. Vitals noted, in general he is awake and alert pleasant no distress. HEENT normal cephalic atraumatic mucous members moist. Breathing unlabored no accessory muscle use good effort. skin no significant rashes, no pallor or icterus. SBOimproving, now status post lysis of adhesions. tolerating low fiber diet, stable for home DVT prophylaxisambulation home as above, outpt f/u
== END 2019-01-28 13:17 | disposition home or self-care (01) | DRG 337 ==
LOC: ED 21:22 → SUATTDRO 01-22 00:29 → 3W 01-22 00:29